=== PATIENT | female | born 1970 | race Caucasian/White ===

== ENCOUNTER 2017-05-01 15:39 | Emergency (ER) | payer BC, SELFPAY ==
[2017-05-01 16:23] LABS: #Basophils 0.1 thou/uL (0.0-0.2); #Eosinphils 0.2 thou/uL (0.0-0.7); #Lymphocytes 3.7 thou/uL (1.20-3.40); #Monocytes 0.7 thou/uL (0.11-0.59); #Neutrophils 5.3 thou/uL (1.40-6.50); %Basophils 0.8 % (0.0-1.0); %Lymphocytes 36.8 % (21.0-51.0); %Monocytes 6.9 % (0.0-10.0); %Neutrophils 53.5 % (42.0-75.0); Hemoglobin 16.9 g/dL (12.0-16.0); Mean Corpuscular HGB CONC 34.4 g/dL (32.0-36.0); Mean Corpuscular Hemoglobin 34.3 pg (27.0-31.0); Mean Corpuscular Volume 99.6 fl (81.0-99.0); Mean Platelet Volume 7.5 fL (7.4-10.4); Platelet Count 280 thou/uL (130-400); RBC Distribution Width 11.8 % (11.5-14.5); Red Blood Cell (RBC) Count 4.94 mill/uL (4.20-5.40)
[2017-05-01 16:45] LABS: ALT (SGPT) 14 U/L (8-55); AST (SGOT) 16 U/L (5-34); Albumin 4.3 g/dL (3.5-5.0); Alkaline Phosphatase 121 U/L (40-150); Anion Gap 10 mmol/L (10-20); BUN (Urea Nitrogen) 15 mg/dL (7.0-18.7); Bilirubin, Total 0.3 mg/dL (0.2-1.2); CK (CPK) 98 U/L (29-168); Calc. Creatinine Clearance 0 mL/min (70-130); Calcium 9.8 mg/dL (7.8-10.44); Carbon Dioxide 25 mmol/L (22-29); Chloride 107 mmol/L (98-107); Estimated GFR-MDRD 83; Globulin 3.2 g/dL (2.4-3.5); Glucose 90 mg/dL (70-105); Potassium 4.1 mmol/L (3.5-5.1); Protein, Total 7.5 g/dL (6.0-8.3); Sodium 138 mmol/L (136-145)
[2017-05-01 16:48] LABS: Troponin I Less than 0.010 ng/mL (< 0.028)
--- NOTE | 2017-05-01 17:25 | RAD ---
PORTABLE CHEST: 05/01/17 COMPARISON: 10/19/14 study. HISTORY: Chest pain. The heart size is within normal limits. There is some atherosclerotic changes of the aorta. The lungs are clear of infiltrative process. IMPRESSION: No active intrathoracic disease. POS: [facility]
[2017-05-01] MEDS ORDERED: Fentanyl 100 MCG/2 ML VIAL ONE (18:33)
--- NOTE | 2017-05-01 18:36 | ULT ---
GALLBLADDER ULTRASOUND: 05/01/17 HISTORY: Right upper quadrant pain. Real time imaging of the right upper quadrant shows suggestion of some minimal sludge within the gall bladder. No gallstones are identified. The common duct is normal in caliber. Technologist reports a n egative ultrasound House's sign. Common duct measures 5 to 6 mm. Visualized liver parenchyma is unre markable. Right kidney is normal in size and not obstructed. The pancreas is partially obscured. IMPRESSION: Suggestive of some minimal sludge within the gallbladder. No gallstones. POS: [facility]
[2017-05-01] MEDS ORDERED: Mag-Al 1200 mg/1200 mg/30 ML UDCUP ONE (18:39)
[2017-05-01] MEDS ORDERED: Lidocaine Viscous Sol 2% 15 ml UD Cup ONE (18:39)
[2017-05-01 18:46] LABS: Bilirubin Negative (Negative); Blood, Urine Negative (Negative); Clarity CLOUDY (Clear); Glucose, Urine (Dipstick) Negative (Negative); Leukocyte Negative (Negative); Nitrite Negative (Negative); Protein, Urine (Dipstick) Negative (Neg-Trace); Specific Gravity, Urine 1.008 (1.002-1.036); Urobilinogen 0.2 mg/dL (0.2-1.0); pH, Urine 5.5 (5.0-9.0)
--- NOTE | 2017-06-05 19:50 | EKG ---
Test Reason : CHEST PAIN Blood Pressure : / mmHG Vent. Rate : 088 BPM Atrial Rate : 088 BPM P-R Int : 142 ms QRS Dur : 068 ms QT Int : 372 ms P-R-T Axes : 039 011 -11 degrees QTc Int : 450 ms Normal sinus rhythm Normal ECG Confirmed by MIGDALIA NIX, JOSE ([id number]), assistant editor DANIEL HUMPHRIES ([id number]) on 06/05/2017 7:50:07 PM Referred By: Confirmed By:JOSE NEGRON MD
== END 2017-05-01 20:57 | disposition home or self-care (01) ==
LOC: ERS 15:39
DX: K82.8 Other specified diseases of gallbladder (principal); R07.89 Other chest pain; I10 Essential (primary) hypertension; G62.9 Polyneuropathy, unspecified; F41.9 Anxiety disorder, unspecified; F17.210 Nicotine dependence, cigarettes, uncomplicated; Z79.899 Other long term (current) drug therapy; Z71.6 Tobacco abuse counseling; Z79.02 Long term (current) use of antithrombotics/antiplatelets
CPT/HCPCS: 36415; 71045; 76705; 80053; 81003; 82553; 83690; 84484; 85025; 93005; 96361; 96374; 96375; 99406; J2270; J3010

== ENCOUNTER 2017-06-12 16:33 | Emergency (ER) | payer BC ==
[~2017-06-12 16:33] MED LIST: ISOVUE-370 76%-LOCM 1 ML ONE
[2017-06-12] MEDS ORDERED: HYDROcodone/Acetaminophen 5/325 mg Tablet ONE (17:58)
[2017-06-12 18:25] LABS: #Basophils 0.1 thou/uL (0.0-0.2); #Eosinphils 0.1 thou/uL (0.0-0.7); #Lymphocytes 3.4 thou/uL (1.20-3.40); #Monocytes 0.8 thou/uL (0.11-0.59); #Neutrophils 8.7 thou/uL (1.40-6.50); %Basophils 0.7 % (0.0-1.0); %Lymphocytes 25.8 % (21.0-51.0); %Monocytes 6.1 % (0.0-10.0); %Neutrophils 66.3 % (42.0-75.0); Hemoglobin 15.2 g/dL (12.0-16.0); Mean Corpuscular HGB CONC 34.8 g/dL (32.0-36.0); Mean Corpuscular Hemoglobin 33.3 pg (27.0-31.0); Mean Corpuscular Volume 95.9 fl (81.0-99.0); Mean Platelet Volume 6.9 fL (7.4-10.4); Platelet Count 316 thou/uL (130-400); RBC Distribution Width 11.6 % (11.5-14.5); Red Blood Cell (RBC) Count 4.56 mill/uL (4.20-5.40); White Blood Cell (WBC) Count 13.1 thou/uL (4.8-10.8)
[2017-06-12 18:41] LABS: BHCG - Serum Negative (NEGATIVE); Pregs Control Background? CLEAR/WHITE (CLR/WHITE); Pregs Control Bar Appear? YES (CONTROL BAR)
[2017-06-12 18:47] LABS: ALT (SGPT) 12 U/L (8-55); AST (SGOT) 17 U/L (5-34); Albumin 4.6 g/dL (3.5-5.0); Alkaline Phosphatase 119 U/L (40-150); Anion Gap 12 mmol/L (10-20); BUN (Urea Nitrogen) 10 mg/dL (7.0-18.7); Bilirubin, Total 0.4 mg/dL (0.2-1.2); CK (CPK) 183 U/L (29-168); Calc. Creatinine Clearance 0 mL/min (70-130); Calcium 9.7 mg/dL (7.8-10.44); Carbon Dioxide 26 mmol/L (22-29); Chloride 97 mmol/L (98-107); Estimated GFR-MDRD 88; Glucose 75 mg/dL (70-105); Potassium 3.5 mmol/L (3.5-5.1); Protein, Total 7.6 g/dL (6.0-8.3); Sodium 131 mmol/L (136-145)
[2017-06-12] MEDS ORDERED: Ondansetron HCl/PF 4 MG/2 ML Vial ONE (19:43)
[2017-06-12] MEDS ORDERED: Morphine 4 MG/ML VIAL ONE (19:43)
--- NOTE | 2017-06-12 20:30 | CT ---
CT ANGIOGRAM ABDOMEN AND PELVIS WITH IV CONTRAST AND 3D RECONSTRUCTIONS CT ANGIOGRAM BILATERAL LOWER EXTREMITIES WITH IV CONTRAST AND 3D RECONSTRUCTIONS 06/12/17 HISTORY: Right lower extremity pain. History of arterial stents. Patient reports burning and numbness as well. COMPARISON: 07/24/16. CT ANGIOGRAM ABDOMEN AND PELVIS: There is bibasilar atelectasis. The liver, spleen, pancreas, bilateral adrenal glands, kidneys, and u rinary bladder demonstrate a normal CT appearance for arterial phase of imaging. There is evidence of hysterectomy. Atherosclerotic vascular calcifications are again seen in the abdominal aorta. The abdominal aorta is normal in caliber without evidence of an aortic dissection. Celiac and superior mesenteric arteries are patent. The ELIA also appears patent. Single patent bilateral renal arteries. Right common iliac artery stent is again noted in place, but there is no enhancement within the stent suggesting occlusion of the stent at the origin. There is reconstitution with patent right internal and external iliac arteries as well as right common femoral artery. The left common iliac as well as internal and external iliac arteries are patent. The left common femoral artery is patent. No other i nterval change. BILATERAL LOWER EXTREMITY RUNOFF TO THE FEET: The bilateral common femoral, superficial femoral, profunda femoral and popliteal arteries are patent . There is three vessel runoff to the right lower extremity. There is two vessel runoff to the left l ower extremity with occlusion of the left posterior tibial artery. There is reconstitution of the pos terior tibial artery at the foot. IMPRESSION: 1. Occlusion of the right common iliac artery stent. There is reconstitution on the right, and t he right external iliac and right common femoral artery are patent. There is three vessel runoff to t he right lower extremity. 2. Two vessel runoff to the left lower extremity. The left posterior tibial artery is occluded. 3. Atherosclerotic calcifications and plaque in the abdominal aorta, but the abdominal aorta is normal in caliber without evidence of an aortic dissection. POS: [facility]
== END 2017-06-12 21:32 | disposition home or self-care (01) ==
LOC: ERS 16:33
DX: I74.5 Embolism and thrombosis of iliac artery (principal); I10 Essential (primary) hypertension; F41.9 Anxiety disorder, unspecified; F32.9 Major depressive disorder, single episode, unspecified; F17.210 Nicotine dependence, cigarettes, uncomplicated; Z79.899 Other long term (current) drug therapy
CPT/HCPCS: 36415; 75635; 80053; 82550; 83605; 84703; 85025; 96374; 96375; 99406; J2270; J2405

== ENCOUNTER 2017-06-15 22:29 | Observation (INO) | payer BC ==
[2017-06-16] MEDS ORDERED: diphenhydrAMINE 50 MG/ML VIAL ONE (00:38)
[2017-06-16] MEDS ORDERED: Metoclopramide HCl 10 MG/2 ML VIAL ONE (00:38)
[2017-06-16 01:09] LABS: #Basophils 0.1 thou/uL (0.0-0.2); #Eosinphils 0.1 thou/uL (0.0-0.7); #Lymphocytes 3.3 thou/uL (1.20-3.40); #Monocytes 0.7 thou/uL (0.11-0.59); #Neutrophils 7.6 thou/uL (1.40-6.50); %Basophils 0.7 % (0.0-1.0); %Eosinophils 0.9 % (0.0-10.0); %Lymphocytes 27.9 % (21.0-51.0); %Monocytes 5.8 % (0.0-10.0); %Neutrophils 64.7 % (42.0-75.0); Hemoglobin 14.9 g/dL (12.0-16.0); Mean Corpuscular HGB CONC 34.8 g/dL (32.0-36.0); Mean Corpuscular Hemoglobin 33.1 pg (27.0-31.0); Mean Corpuscular Volume 95.3 fl (81.0-99.0); Mean Platelet Volume 7.2 fL (7.4-10.4); Platelet Count 301 thou/uL (130-400); RBC Distribution Width 11.4 % (11.5-14.5); White Blood Cell (WBC) Count 11.7 thou/uL (4.8-10.8)
[2017-06-16 01:14] LABS: INR-International Normal Ratio 0.9; Prothrombin Time 12.3 SEC (12.0-14.7)
[2017-06-16 01:30] LABS: ALT (SGPT) 9 U/L (8-55); AST (SGOT) 14 U/L (5-34); Albumin 4.2 g/dL (3.5-5.0); Alkaline Phosphatase 111 U/L (40-150); Anion Gap 12 mmol/L (10-20); BUN (Urea Nitrogen) 10 mg/dL (7.0-18.7); Bilirubin, Total 0.2 mg/dL (0.2-1.2); Calc. Creatinine Clearance 0 mL/min (70-130); Calcium 9.3 mg/dL (7.8-10.44); Carbon Dioxide 25 mmol/L (22-29); Chloride 98 mmol/L (98-107); Estimated GFR-MDRD 89; Globulin 2.9 g/dL (2.4-3.5); Glucose 115 mg/dL (70-105); Lipase 31 U/L (8-78); Potassium 3.7 mmol/L (3.5-5.1); Protein, Total 7.1 g/dL (6.0-8.3); Sodium 131 mmol/L (136-145)
[2017-06-16] MEDS ORDERED: Morphine 4 MG/ML VIAL ONE ×2 (01:59→03:44)
[2017-06-16] MEDS ORDERED: Clopidogrel Bisulfate 75 MG TAB ONE (02:53)
[2017-06-16 03:11] LABS: CKMB 1.1 ng/mL (0-6.6); Troponin I Less than 0.010 ng/mL (< 0.028)
[2017-06-16] MEDS ORDERED: Acetaminophen 325 MG TAB PO PRN (07:38)
[2017-06-16] MEDS ORDERED: Ondansetron HCl/PF 4 MG/2 ML Vial IVP PRN (07:38)
--- NOTE | 2017-06-16 08:39 | CT ---
PRELIMINARY REPORT/[facility]/EMERGENCY AFTER HOURS PROCEDURE: EXAM: CT Head Without Intravenous Contrast CLINICAL HISTORY: 47 years old, female; Pain; Headache; Patient HX: 47 yo f. Pt presents with CRUZ onset this evening at 1800, no intervention after taking tylenol. States that had a small CRUZ yesterday that resolved with t ylenol but was gradual onset again tonight and not relief, described as throbbing, and into neck. Pt with HX of cruz's but hasn't had one in a while, but is similar to ones in the past. Reports nausea and photophobia associated. HX of arterial occlusions TECHNIQUE: Axial computed tomography images of the head/brain without intravenous contrast. COMPARISON: No relevant prior studies available. FINDINGS: Brain: Age-indeterminate right basal ganglia/box radiata infarction image 16 No hemorrhage. Minimal white matter disease. No edema. Ventricles: Unremarkable. No ventriculomegaly. Bones/joints: Unremarkable. No acute fracture. Soft tissues: Unremarkable. Sinuses: Unremarkable as visualized. No acute sinusitis. Mastoid air cells: Unremarkable as visualized. No mastoid effusion. IMPRESSION: Age-indeterminate right basal ganglia/box radiata infarction. Comparison with prior images would b e helpful paralyzed clinical correlation recommended. Further evaluation as indicated No intracranial hemorrhage.Please see discussion above. Thank you for allowing us to participate in the care of your patient. Dictated and Authenticated by: Gui Multani MD 06/16/2017 2:19 AM Central Time ([place] & [place]) FINAL REPORT: HEAD CT WITHOUT CONTRAST: Date: 06-16-17 Comparison: 10-19-14 History: Headache. FINDINGS: I agree with the preliminary [facility] report dictated by Dr. Dunn. The visualized paranasal sinuses an d mastoid air cells are well aerated. There is no displaced calvarial fracture. There is no intracran ial hemorrhage, midline shift or mass effect seen. A subtle hypodensity is seen in the periventricula r white matter near the frontal horn of the right lateral ventricle, stable. IMPRESSION: No acute findings. Code QA POS: [facility]
--- NOTE | 2017-06-16 09:10 | CT ---
PRELIMINARY REPORT/[facility]/EMERGENCY AFTER HOURS PROCEDURE: Addendum created by Gui Multani MD on 06/16/2017 2:47 AM Central Time ([place] & [place]) EXAM: CT Angiography Head With Intravenous Contrast CLINICAL HISTORY: 47 years old, female; Pain; Headache; Patient HX: 47 yo f. Pt presents with CRUZ onset this evening at 1800, no intervention after taking tylenol. States that had a small CRUZ yesterday that resolved with tylenol but was gradual onset again tonight and not relief, described as throbbing, and into neck. Pt with HX of cruz's but hasn't had one in a while, but is similar to ones in the past. Reports nausea an d photophobia associated. HX of arterial occlusions TECHNIQUE: Axial computed tomographic angiography images of the head with intravenous contrast using CT angiogra phy protocol. Coronal and sagittal reformatted images were created and reviewed. COMPARISON: No relevant prior studies available. FINDINGS: Right internal carotid artery: No acute findings. Intracranial segment is patent with no significant stenosis. No aneurysm. Right anterior cerebral artery: No occlusion or significant stenosis. No aneurysm. Right middle cerebral artery: Partially occluded right M1 segments with normal opacification of the a nterior and posterior divisions of the right MCA. Diminutive appearance to the distal right sylvian b [place] however grossly patent. No aneurysm. Right posterior cerebral artery: origin with hypoplasia of the P1 segment, a normal variation N o occlusion or significant stenosis. No aneurysm. Right vertebral artery: Hypoplastic however grossly patent Left internal carotid artery: No acute findings. Intracranial segment is patent with no significant s tenosis. No aneurysm. Left anterior cerebral artery: No occlusion or significant stenosis. No aneurysm. Left middle cerebral artery: No occlusion or significant stenosis. No aneurysm. Left posterior cerebral artery: origin with hypoplasia of the P1 segment, a normal variation No occlusion or significant stenosis. No aneurysm. Left vertebral artery: Hypoplastic however grossly patent Basilar artery: Hypoplastic. Questionable fenestration in the proximal portion coronal image 49 No oc clusion or significant stenosis. No aneurysm. IMPRESSION: Partial occlusion of the right M1 segment with reconstitution as described. Findings are of indetermi lisa age Hypoplasia of the posterior circulation with normal variations as described. Question fenestration the proximal basilar artery EXAM: CT Angiography Neck With Intravenous Contrast CLINICAL HISTORY: 47 years old, female; Pain; Headache; Patient HX: 47 yo f. Pt presents with CRUZ onset this evening at 1800, no intervention after taking tylenol. States that had a small CRUZ yesterday that resolved with t ylenol but was gradual onset again tonight and not relief, described as throbbing, and into neck. Pt with HX of cruz's but hasn't had one in a while, but is similar to ones in the past. Reports nausea and photophobia associated. HX of arterial occlusions TECHNIQUE: Axial computed tomographic angiography images of the neck with intravenous contrast using CT angiogra phy protocol. Coronal and sagittal reformatted images were created and reviewed. COMPARISON: No relevant prior studies available. FINDINGS: VASCULATURE: Right common carotid artery: No significant stenosis. No dissection or occlusion. Right internal carotid artery: Calcified plaque at the bulb with mild stenosis. No dissection or occl usion. Right external carotid artery: Unremarkable. No occlusion. Right vertebral artery: No significant stenosis. No dissection or occlusion. Left common carotid artery: No significant stenosis. No dissection or occlusion. Left internal carotid artery: Calcified plaque with mild stenosis at the bulb. No dissection or occlu gunnar. Left external carotid artery: 6mm occlusion at the origin with reconstitution best appreciated on cor onal image 57 and axial images 109-114 Left vertebral artery: No significant stenosis. No dissection or occlusion. NECK: Bones/joints: No acute fracture. No dislocation. Soft tissues: 9 mm hypodense nodule in the right lobe of the thyroid image 52 Minimal emphysema CAROTID STENOSIS REFERENCE USING NASCET CRITERIA: % ICA stenosis = (1 - narrowest ICA diameter/diameter of distal cervical ICA) x 100. Mild - <50% stenosis. Moderate - 50-69% stenosis. Severe - 70-94% stenosis. Near occlusion - 95-99% stenosis. Occluded - 100% stenosis. IMPRESSION: Mild internal carotid artery stenoses 6mm segment occlusion of the left external carotid artery at its origin with reconstitution as noted Patent vertebral arteries Incidental 9 mm right-sided thyroid nodule THIS REPORT CONTAINS FINDINGS THAT MAY BE CRITICAL TO PATIENT CARE. The findings were verbally commun icated via telephone conferen
ce with Jordin NIX at 2:20 AM CDT on 06/16/2017. The findings were a cknowledged and understood. Initial Report created on 06/16/2017 2:28 AM Central Time ([place] & [place]) EXAM: CT Angiography Head With Intravenous Contrast CLINICAL HISTORY: 47 years old, female; Pain; Headache; Patient HX: 47 yo f. Pt presents with CRUZ onset this evening at 1800, no intervention after taking tylenol. States that had a small CRUZ yesterday that resolved with t ylenol but was gradual onset again tonight and not relief, described as throbbing, and into neck. Pt with HX of cruz's but hasn't had one in a while, but is similar to ones in the past. Reports nausea and photophobia associated. HX of arterial occlusions TECHNIQUE: Axial computed tomographic angiography images of the head with intravenous contrast using CT angiogra phy protocol. Coronal and sagittal reformatted images were created and reviewed. COMPARISON: No relevant prior studies available. FINDINGS: Right internal carotid artery: No acute findings. Intracranial segment is patent with no significant stenosis. No aneurysm. Right anterior cerebral artery: No occlusion or significant stenosis. No aneurysm. Right middle cerebral artery: Partially occluded right M1 segments with normal opacification of the a nterior and posterior divisions of the right MCA. Diminutive appearance to the distal right sylvian branch however grossly patent. No aneurysm. Right posterior cerebral artery: origin with hypoplasia of the P1 segment, a normal variation N o occlusion or significant stenosis. No aneurysm. Right vertebral artery: Hypoplastic however grossly patent Left internal carotid artery: No acute findings. Intracranial segment is patent with no significant s tenosis. No aneurysm. Left anterior cerebral artery: No occlusion or significant stenosis. No aneurysm. Left middle cerebral artery: No occlusion or significant stenosis. No aneurysm. Left posterior cerebral artery: origin with hypoplasia of the P1 segment, a normal variation No occlusion or significant stenosis. No aneurysm. Left vertebral artery: Hypoplastic however grossly patent Basilar artery: Hypoplastic. Questionable fenestration in the proximal portion coronal image 49 No oc clusion or significant stenosis. No aneurysm. IMPRESSION: Partial occlusion of the right M1 segments with reconstitution as described. Findings are of indeterm inate age Hypoplasia of the posterior circulation with normal variations as described. Question fenestration the proximal basilar artery EXAM: CT Angiography Neck With Intravenous Contrast CLINICAL HISTORY: 47 years old, female; Pain; Headache; Patient HX: 47 yo f. Pt presents with CRUZ onset this evening at 1800, no intervention after taking tylenol. States that had a small CRUZ yesterday that resolved with t ylenol but was gradual onset again tonight and not relief, described as throbbing, and into neck. Pt with HX of cruz's but hasn't had one in a while, but is similar to ones in the past. Reports nausea and photophobia associated. HX of arterial occlusions TECHNIQUE: Axial computed tomographic angiography images of the neck with intravenous contrast using CT angiogra phy protocol. Coronal and sagittal reformatted images were created and reviewed. COMPARISON: No relevant prior studies available. FINDINGS: VASCULATURE: Right common carotid artery: No significant stenosis. No dissection or occlusion. Right internal carotid artery: Calcified plaque at the bulb with mild stenosis. No dissection or occl usion. Right external carotid artery: Unremarkable. No occlusion. Right vertebral artery: No significant stenosis. No dissection or occlusion. Left common carotid artery: No significant stenosis. No dissection or occlusion. Left internal carotid artery: Calcified plaque with mild stenosis at the bulb. No dissection or occl usion. Left external carotid artery: 6mm occlusion at the origin with reconstitution best appreciated on cor onal image 57 and axial images [id number] Left vertebral artery: No significant stenosis. No dissection or occlusion. NECK: Bones/joints: No acute fracture. No dislocation. Soft tissues: 9 mm hypodense nodule in the right lobe of the thyroid image 52 Minimal emphysema CAROTID STENOSIS REFERENCE USING NASCET CRITERIA: % ICA stenosis = (1 - narrowest ICA diameter/diameter of distal cervical ICA) x 100. Mild - <50% stenosis. Moderate - 50-69% stenosis. Severe - 70-94% stenosis. Near occlusion - 95-99% stenosis. Occluded - 100% stenosis. IMPRESSION: Mild carotid stenoses Short segment occlusion of the left external carotid artery with reconstitution as noted Patent vertebral arteries Incidental 9 mm right-sided thyroid nodule THIS REPORT CONTAINS FINDINGS THAT MAY BE CRITICAL TO PATIENT CARE. The findings were verbally commun icated via telephone conference with Jordin NIX at 2:20 AM CDT on 06/16/2017. The findings were acknow ledged and understood. Thank you for allowing us to participate in the care of your patient. Dictated and Authenticated by: Gui Multani MD 06/16/2017 2:28 AM Central Time ([place] & [place]) FINAL REPORT CT ANGIOGRAM OF THE HEAD CT ANGIOGRAM OF THE NECK: Date: 06-16-17 Comparison: None. History: Headache. FINDINGS: I agree with the preliminary [facility] report dictated by Dr. Gui Multani. The imaged lung apices are unremarkable. The retro antral and peripharyngeal fat is clear bilaterally. The submandibular glands and right paro tid gland are unremarkable. There is an oval soft tissue density along the posterior margin of the pa rotid gland on the left measuring 7-8 mm short axis dimension. This likely represents a lymph node ad jacent to the parotid gland. A small parotid solid nodule cannot be excluded. Further assessment via focused ultrasound is advised. Lymphadenopathy evident within the neck. The origin of the innominate artery and left common carotid artery is limited on the basis of streak artifact from venous contrast media. Origin of the left subclavian artery appears unremarkable. There is a moderate degree of stenosis at the origin of the left vertebral artery. Left vertebral artery i s otherwise unremarkable. Right vertebral artery is unremarkable. Origin of the right subclavian and right common carotid artery within normal limits. There is a short segment focal area of occlusion involving the external carotid artery on the left wi th distal reconstitution. There is mild atherosclerotic calcification of the distal left common carot id artery. There is mild noncalcified plaque within the proximal left internal carotid artery. There is no hemodynamically significant stenosis involving the common carotid artery or internal carotid ar juan on either side. The basilar artery is relatively hypoplastic but patent. There are prominent patent bilateral posteri or communicating arteries with probable hypoplastic bilateral P1 segments. Region of the anterior communicating artery, bilateral A1 segments and distal ABELARDO branches appear wit hin normal limits. M1 segment appears unremarkable on the left with patent distal left MCA branches. There is occlusion at the origin of the M1 segment on the right with distal reconstitution and diminu tive but patent M2 branches on the right. There is hazy blush of contrast media adjacent to the occlu ded M1 segment on the right which may signify small collateral branches. Occlusion of the M1 segment on the right is age indeterminate. Clinical correlation is warranted. No sacular aneurysm. Incidental note is made of a hypodense nodule within the right lobe of the thyroid gland measuring up to 9 mm. Recommend follow up focused ultrasound of the left parotid region. Code T POS: [facility]
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
[2017-06-16] MEDS ORDERED: ISOVUE-370 76%-LOCM 1 ML ONE (12:23)
[2017-06-16] MEDS ORDERED: Ketorolac Tromethamine 30 MG/ML VIAL ONE (12:38)
[2017-06-16] MEDS ORDERED: Acetaminophen 325 MG TAB ONE (12:38)
[2017-06-16] MEDS ORDERED: Nicotine 21 MG PATCH TOP SCH (17:30)
[2017-06-16] MEDS: Clopidogrel Bisulfate 75 MG TAB PO SCH (18:22)
[2017-06-16 19:58] VITALS: BMI 35.2
[2017-06-16] MEDS: Ketorolac Tromethamine 30 MG/ML VIAL IVP PRN (22:58)
[2017-06-17 06:10] LABS: #Eosinphils 0.1 thou/uL (0.0-0.7); #Monocytes 0.6 thou/uL (0.11-0.59); %Basophils 0.4 % (0.0-1.0); %Eosinophils 1.8 % (0.0-10.0); %Lymphocytes 38.4 % (21.0-51.0); %Monocytes 7.8 % (0.0-10.0); %Neutrophils 51.6 % (42.0-75.0); Hemoglobin 14.5 g/dL (12.0-16.0); Mean Corpuscular HGB CONC 34.7 g/dL (32.0-36.0); Mean Corpuscular Hemoglobin 33.4 pg (27.0-31.0); Mean Corpuscular Volume 96.3 fl (81.0-99.0); Mean Platelet Volume 7.2 fL (7.4-10.4); Platelet Count 272 thou/uL (130-400); RBC Distribution Width 11.6 % (11.5-14.5); Red Blood Cell (RBC) Count 4.34 mill/uL (4.20-5.40); White Blood Cell (WBC) Count 7.7 thou/uL (4.8-10.8)
[2017-06-17 06:28] LABS: Anion Gap 11 mmol/L (10-20); BUN (Urea Nitrogen) 18 mg/dL (7.0-18.7); Calc. Creatinine Clearance 137 mL/min (70-130); Carbon Dioxide 24 mmol/L (22-29); Cardiac Risk 4.7 (Less than 4.5); Chloride 105 mmol/L (98-107); Cholesterol 178 mg/dl (< 200 Desired); Estimated GFR-MDRD 85; Glucose 107 mg/dL (70-105); HDL Cholesterol 38 mg/dL (>60 Neg Risk); LDL Cholesterol, Calculated 118 mg/dL; Sodium 136 mmol/L (136-145); Triglycerides 109 mg/dL (Less than 150)
[2017-06-17] MEDS: Lisinopril 5 MG TAB PO SCH ×2 (08:50→20:11)
[2017-06-17] MEDS: Clopidogrel Bisulfate 75 MG TAB PO SCH (08:50)
[2017-06-17] MEDS: Metoprolol Tartrate 25 MG TAB PO SCH ×2 (08:50→20:12)
[2017-06-17] MEDS: Ketorolac Tromethamine 30 MG/ML VIAL IVP PRN ×2 (08:50→16:12)
--- NOTE | 2017-06-17 08:52 | PDOC.PN ---
- Subjective Encounter Start Date: 06/17/17 Encounter Start Time: 08:50 Ms. Pang was seen in follow-up. She says she is having an excruciating headache. She describes it as an 8/10. She also feels weak. She says she was intolerant to a certain cholesterol medication, she is not sure what the name was, but will call and find out. - Objective Resuscitation Status: Resuscitation Status FULL:Full Resuscitation MAR Reviewed: Yes Vital Signs & Weight: Vital Signs (12 hours) Temp Pulse Resp BP Pulse Ox 06/17/17 07:45 97.9 F 62 16 150/72 H 97 06/17/17 03:31 97.7 F 69 16 149/88 H 95 06/16/17 23:31 97.7 F 66 16 157/100 H 99 Weight Weight 202 lb 11.2 oz I&O: 06/16/17 06/17/17 06/18/17 06:59 06:59 06:59 Intake Total 300 Balance 300 Result Diagrams: 06/17/17 05:53 06/17/17 05:53 Phys Exam - Physical Examination HEENT: PERRLA Respiratory: no wheezing, no rales, no rhonchi, clear to auscultation bilateral Cardiovascular: RRR, no significant murmur, no rub Gastrointestinal: soft, non-tender, no distention, positive bowel sounds Musculoskeletal: no edema Neurological: moves all 4 limbs Dx/Plan (1) Severe headache Code(s): R51 - HEADACHE Status: Acute (2) Hypertension Code(s): I10 - ESSENTIAL (PRIMARY) HYPERTENSION Status: Acute (3) Cerebral vascular disease Code(s): I67.9 - CEREBROVASCULAR DISEASE, UNSPECIFIED Status: Acute (4) Dyslipidemia Code(s): E78.5 - HYPERLIPIDEMIA, UNSPECIFIED Status: Acute - Plan * Headache- ? etiology- await Neurology input * HTN- blood pressure is a bit elevated- will re-start her home medications * Dyslipidemia- would like to start a statin- will find out which medication she was taking and decide from there
[2017-06-17] MEDS ORDERED: Valproate Sodium 1,000 MG in Sodium Chloride 0.9% 100 ML IVPB SCH (17:30)
[2017-06-17] MEDS ORDERED: Metoclopramide HCl 10 MG/2 ML VIAL IVP SCH (17:30)
[2017-06-17] MEDS ORDERED: Dexamethasone 4 mg/ml Vial SLOW IVP SCH (17:30)
[2017-06-17] MEDS: Dihydroergotamine Mesylate 1 MG/ML AMP SLOW IVP SCH ×2 (17:59→23:07)
[2017-06-17] MEDS ORDERED: hydrALAZINE 20 MG/ML VIAL SLOW IVP PRN (22:28)
[2017-06-17] MEDS ORDERED: hydrALAZINE 20 MG/ML VIAL SLOW IVP SCH (22:30)
--- NOTE | 2017-06-17 22:40 | CON ---
DATE OF CONSULTATION: 06/17/2017 CONSULTING PHYSICIAN: Hospitalist service. IMPRESSION: 1. Severe headache suggestive of a migraine. 2. Vascular disease resulting in some right M1 segment narrowing and prior right basal ganglia strok e. 3. Peripheral vascular disease. 4. Hypertension. PLAN: 1. Newtno protocol. 2. Continue antiplatelet therapy. 3. Continue a statin. This is a 47-year-old white female with a past history of peripheral vascular disease in the legs whi ch has been treated by Dr. Corbett. She has a history of hypertension and she has had stents placed in the past. She apparently has some recurrent stenosis and require bypass, 3 days ago she developed a n acute onset of severe headache on the right side. It was associated with some nausea as well as li ght and sound sensitivity. She has had some persistent pain despite receiving Toradol. She had a CT of the brain done, which did not show any evidence of a hemorrhage. CTA of the carotids were unrema rkable. A CTA of the [place] showed some right M1 segment narrowing. She has not had a his tory of bad headaches in the past. PAST MEDICAL HISTORY: As listed above. ALLERGIES: ASPIRIN. MEDICATIONS: List was reviewed. SOCIAL HISTORY: Unremarkable. FAMILY HISTORY: Noncontributory. REVIEW OF SYSTEMS: No complaints of any focal neurologic symptoms, blurred vision, slurred speech, d ifficulty swallowing, or alteration of consciousness. PHYSICAL EXAMINATION: GENERAL: She is an obese middle-aged woman sitting in bed in no apparent distress. VITAL SIGNS: Have been stable. She is afebrile. HEENT: Pupils are equal and reactive. Conjunctivae clear. Oropharynx clear. Cranium normocephalic and atraumatic. NECK: Supple. EXTREMITIES: No cyanosis or edema. NEUROLOGIC: She is alert and appropriate. Her speech is fluent and clear. Cranial nerves II-XII ar e intact. Motor exam showed symmetric strength. There was no fix or drift. Sensation was intact to light touch. Cerebellar testing showed normal finger to nose and rapid alternating movements. Gait was not tested. IMAGING: Reviewed. SUMMARY: The findings on CT scan are chronic. She does not appear to have any evidence of a new str alyssia that would account for an acute headache. She has no focal symptoms to suggest an acute stroke. I suspect this is likely migraine in origin, given her vascular disease. She will need to continue antiplatelet therapy and a statin.
[2017-06-18] MEDS: Lisinopril 5 MG TAB PO SCH (08:43)
[2017-06-18] MEDS: Clopidogrel Bisulfate 75 MG TAB PO SCH (08:43)
[2017-06-18] MEDS: Metoprolol Tartrate 25 MG TAB PO SCH (08:44)
[2017-06-18 11:52] VITALS: BP 147/88; TEMP 98.1
[2017-06-18] MEDS ORDERED: SUMAtriptan Succinate 50 MG TAB PO PRN (14:54)
--- NOTE | 2017-06-18 15:03 | PDOC.PN ---
- Subjective Encounter Start Date: 06/18/17 Encounter Start Time: 14:59 Ms. Pang was seen today in follow-up. She is feeling a bit better. - Objective Resuscitation Status: Resuscitation Status FULL:Full Resuscitation MAR Reviewed: Yes Vital Signs & Weight: Vital Signs (12 hours) Temp Pulse Resp BP Pulse Ox 06/18/17 11:51 98.1 F 58 L 20 147/88 H 95 06/18/17 08:43 72 06/18/17 08:10 98.2 F 72 16 155/91 H 96 06/18/17 08:02 98.2 F 72 16 06/18/17 03:52 98.1 F 69 16 149/108 H 95 Weight Weight 204 lb 1.6 oz I&O: 06/17/17 06/18/17 06/19/17 06:59 06:59 06:59 Intake Total 300 530 600 Balance 300 530 600 Result Diagrams: 06/17/17 05:53 06/17/17 05:53 Phys Exam - Physical Examination HEENT: PERRLA Respiratory: no wheezing, no rales, no rhonchi, clear to auscultation bilateral Cardiovascular: RRR, no significant murmur ( ) Musculoskeletal: no edema Dx/Plan (1) Severe headache Code(s): R51 - HEADACHE Status: Acute (2) Hypertension Code(s): I10 - ESSENTIAL (PRIMARY) HYPERTENSION Status: Acute (3) Cerebral vascular disease Code(s): I67.9 - CEREBROVASCULAR DISEASE, UNSPECIFIED Status: Acute (4) Dyslipidemia Code(s): E78.5 - HYPERLIPIDEMIA, UNSPECIFIED Status: Acute - Plan * She has been evaluated by Dr. Victor, and it is felt that her headache was likely the result of a migraine- * Changes on CT scan are due to an old CVA * Stable for discharge home.
--- NOTE | 2017-06-18 20:17 | DIS ---
PRIMARY CARE PHYSICIAN: Reji Hanson D.O. DATE OF ADMISSION: 06/16/2017 DATE OF DISCHARGE: 06/18/2017 DISCHARGE DISPOSITION: Home. PRIMARY DISCHARGE DIAGNOSES: 1. Migraine headache. 2. Cerebrovascular disease with a remote stroke. 3. Hypertension. 4. Peripheral artery disease. 5. Anxiety and depression. DISCHARGE MEDICATIONS: She is to continue Plavix 75 mg daily, venlafaxine 75 mg daily, Imitrex 50 mg as needed, pravastatin 20 mg at bedtime, Lopressor 25 mg twice a day, lisinopril 5 mg twice a day, g abapentin 600 mg daily, BuSpar 7.5 mg twice a day and bupropion 150 mg extended release daily. PROCEDURES DONE DURING THE ADMISSION: The patient had a CT scan of the brain, in which there was an age indeterminate right basal ganglia/box radiata infarction. The patient had a CT angiogram show ing a partial occlusion of the right M1 segment with reconstitution and the findings are indeterminat e and there was some hypoplasia of the posterior circulation. CONSULTANTS DURING ADMISSION: The patient was seen by Neurology, Dr. Victor. HOSPITAL COURSE: Ms. Pang is a pleasant a pleasant 47-year-old female that presented to the emergen cy room with complaints of severe headache and she also was having some pains on the left side of her face and had some double vision and she had some generalized weakness in her arms and legs. CT scan in the emergency room showed a possible infarct but the age is undetermined. She also underwent a C T angiogram of the cerebral circulation. There was no aneurysm noted and no significant stenosis. S he was seen by Neurology and it is felt that the stroke was old and that the symptoms of headache wer e likely as a result of a migraine and he is recommending migraine medication for the headache. Her weakness improved during her hospital stay and it was discovered that the patient had not been taking Lipitor as she says it causes severe muscle cramp. For this reason, she was changed to pravastatin in hopes that it will have a better side effect profile for her and Imitrex was added for headache re lief and she is to follow up with her primary care physician in 1-2 weeks.
--- NOTE | 2017-06-28 15:46 | EKG ---
Test Reason : Blood Pressure : / mmHG Vent. Rate : 079 BPM Atrial Rate : 079 BPM P-R Int : 148 ms QRS Dur : 074 ms QT Int : 376 ms P-R-T Axes : 057 017 027 degrees QTc Int : 431 ms Normal sinus rhythm Normal ECG Confirmed by TICO HARRISON M.D. ([id number]), manuscript editor DANIEL HUMPHRIES ([id number]) on 06/28/2017 3:46:16 PM Referred By: Confirmed By:TICO HARRISON M.D.
== END 2017-06-18 15:50 | disposition home or self-care (01) ==
LOC: ERS 22:29 → ERHOLD 06-16 03:35 → 2SE 06-16 18:20
PROVIDERS: ADMIT Internal Medicine; ATTEND Internal Medicine
DX: G43.909 Migraine, unspecified, not intractable, without status migrainosus (principal); I67.9 Cerebrovascular disease, unspecified; E78.5 Hyperlipidemia, unspecified; I10 Essential (primary) hypertension; I73.9 Peripheral vascular disease, unspecified; F41.8 Other specified anxiety disorders; Z88.8 Allergy status to other drugs, medicaments and biological substances; Z79.899 Other long term (current) drug therapy; Z98.890 Other specified postprocedural states
CPT/HCPCS: 36415; 70450; 70496; 70498; 80048; 80053; 80061; 82553; 83690; 83735; 84484; 85025; 85610; 93005; 96365; 96375; 96376; G0378; G8978-GP-CI; G8979-GP-CI; G8980-GP-CI; G8987-GO-CI; G8988-GO-CI; G8989-GO-CI; G9162-GN-CH; G9163-GN-CH; J0360; J1100; J1110; J1200; J1885; J2270; J2765; J7050

== ENCOUNTER 2017-06-28 08:45 | Inpatient (IN) | payer BC ==
[2017-06-29] MEDS ORDERED: CEFAZOLIN/Water 2 GM/20 ML SYRINGE ONE (06:24)
[2017-06-29] MEDS ORDERED: Heparin 5,000 UNITS/ML VIAL ONE (06:35)
[2017-06-29] MEDS ORDERED: Protamine Sulfate 50 MG/5 ML VIAL ONE ×2 (06:35→08:38)
[2017-06-29] MEDS ORDERED: Heparin 10,000 UNITS/1 ML VIAL 30,000 UNITS in Sodium Chloride 0.9% 1,000 ML FS SCH (06:45)
[2017-06-29] MEDS ORDERED: Midazolam HCl 2 mg/2 ml Vial ONE (07:06)
[2017-06-29] MEDS ORDERED: Fentanyl 250 MCG/5 ML VIAL ONE (07:06)
[2017-06-29] MEDS ORDERED: Phenylephrine HCL 10 MG/ML VIAL ONE (07:07)
[2017-06-29] MEDS ORDERED: Ondansetron HCl/PF 4 MG/2 ML Vial ONE ×2 (07:07→13:43)
[2017-06-29] MEDS ORDERED: Norepinephrine 4 MG/4 ML VIAL ONE (07:07)
[2017-06-29] MEDS ORDERED: PHENYLEPHRINE-NS 100 MCG/ML 10 ML SYRINGE ONE ×2 (07:07→13:43)
[2017-06-29] MEDS ORDERED: Albumin 5% 0 ML ONE (07:07)
[2017-06-29] MEDS ORDERED: Promethazine HCl 25 MG/ML VIAL ONE (07:07)
[2017-06-29] MEDS ORDERED: HYDROmorphone 0.5 MG/0.5 ML SYRINGE ONE (07:08)
[2017-06-29] MEDS ORDERED: Morphine Sulfate 2 MG/ML SYRINGE SLOW IVP PRN (10:36)
[2017-06-29] MEDS ORDERED: Ondansetron HCl/PF 4 MG/2 ML Vial IVP PRN ×3 (10:36→17:48)
[2017-06-29] MEDS ORDERED: Promethazine HCl 25 MG/ML VIAL SLOW IVP PRN (10:36)
[2017-06-29] MEDS ORDERED: Fentanyl 100 MCG/2 ML VIAL ONE ×2 (10:45→10:58)
[2017-06-29] MEDS ORDERED: Insulin Regular 300 UNITS/3 ML VIAL SC PRN (11:58)
[2017-06-29] MEDS ORDERED: Fentanyl 100 MCG/2 ML VIAL SLOW IVP PRN (11:58)
[2017-06-29] MEDS ORDERED: Phenylephrine 10 MG/NS 250 ML 250 ML IVPB PRN (11:58)
[2017-06-29] MEDS ORDERED: Promethazine HCl 25 MG/ML VIAL IM PRN ×2 (11:58→17:48)
[2017-06-29] MEDS ORDERED: hydrALAZINE 20 MG/ML VIAL SLOW IVP PRN (11:58)
[2017-06-29] MEDS ORDERED: niCARdipine HCl 25 MG in Sodium Chloride 0.9% 250 ML 240 ML IVPB PRN (11:58)
[2017-06-29] MEDS: Lactated Ringer's 1,000 ML IV SCH ×2 (12:39→21:00)
[2017-06-29] MEDS: Ketorolac Tromethamine 30 MG/ML VIAL IVP SCH ×3 (12:39→22:52)
[2017-06-29] MEDS: Fentanyl 100 MCG/2 ML VIAL SLOW IVP PRN ×3 (13:28→16:35)
[2017-06-29] MEDS: CEFAZOLIN/Water 2 GM/20 ML SYRINGE SLOW IVP SCH ×2 (13:29→22:53)
[2017-06-29] MEDS ORDERED: Lidocaine 1% PF 5 ML VIAL ONE (13:43)
[2017-06-29] MEDS ORDERED: Heparin 10,000 UNITS/ 10 ML VIAL ONE (13:43)
[2017-06-29] MEDS ORDERED: Glycopyrrolate 0.2 MG/ML 5 ML SYRINGE ONE (13:43)
[2017-06-29] MEDS ORDERED: PROPOFOL 200 MG/20 ML VIAL ONE (13:43)
[2017-06-29] MEDS ORDERED: Dexamethasone 20 MG/5 ML VIAL ONE (13:43)
--- NOTE | 2017-06-29 14:06 | OP ---
PREOPERATIVE DIAGNOSIS: Peripheral arterial disease. PROCEDURE: Aorta by external iliac bypass with a 12 x 7 Hemashield bifurcation graft. SURGEON: Dr. Kit Corbett. STEAMBOAT PILOT: Dr. Vera. TRANSFUSION: None. ESTIMATED BLOOD LOSS: 300. PROCEDURE IN DETAIL: After adequate anesthesia had been obtained, the patient was examined. She was rather obese with significant adipose tissue overhanging her groin areas making groin incisions not a first choice. Her CT scan, it showed what appeared to be disease free external iliac arteries and at that point, it was decided to remain in the abdominal cavity rather than to risk a groin infection with a Dacron graft. The patient was then prepped and draped and after antibiotics had been adminis tered, midline abdominal incision was made. Some adhesions were taken down from a previous lower mid line incision with a herniated omentum being present in the abdominal wall. Following this, a Balfou r retractor was placed and then the Bookwalter retractor. Due to her obesity, the retractor blades w ere at their limit as far as exposure. Distal abdominal aorta was exposed, following which external iliac arteries were exposed and tunnels created. After heparinization, the aorta was clamped distall y. The left common iliac was clamped and the aorta was then divided at the bifurcation. The common iliac artery on the left was oversewn with a double layer of 3-0 Prolene suture and ultimately additi onal sutures were required to control bleeding and this calcified vessel. The right common iliac art amy was thrombosed. Following this, end-to-end anastomosis to the aorta was completed with a running 4-0 Prolene suture. Limbs were brought through the tunnel and end-to-side anastomosis performed to the external iliac arteries a couple of centimeters after the takeoff of the hypogastric arteries. F ollowing this, protamine was given to partially reverse the heparin re-peritonealization was carried out over the limbs as well as the aorta. Following completion of this, bowel was returned to the abd ominal cavity. Counts were correct and the fascia was then closed with a running double stranded #1 PDS suture. Subcutaneous tissue and skin were closed in layers.
[2017-06-29] MEDS: Vancomycin HCl 1 GM in Premix Bag 1 BAG IVPB SCH (17:37)
[2017-06-29] MEDS ORDERED: Naloxone HCl 0.4 mg/ml Vial IV PRN (17:48)
[2017-06-29] MEDS ORDERED: Fentanyl 5000 MCG/250 ML CADD IVPB PRN (17:48)
[2017-06-29] MEDS ORDERED: diphenhydrAMINE 50 MG/ML VIAL IVP PRN (17:48)
[2017-06-29] MEDS ORDERED: Zolpidem Tartrate 5 MG TAB PO PRN (17:48)
[2017-06-29] MEDS ORDERED: diphenhydrAMINE 50 MG/ML VIAL IM PRN (17:48)
[2017-06-29] MEDS ORDERED: diphenhydrAMINE 25 MG CAP PO PRN (17:48)
[2017-06-29] MEDS ORDERED: Communication Order-Pharmacy FS SCH (18:00)
[2017-06-29] MEDS: fentaNYL Citrate/PF 2,000 MCG in Sodium Chloride 0.9% 60 ML IV PRN (18:07)
[2017-06-29] MEDS ORDERED: Metoprolol Tartrate 25 MG TAB PO SCH (21:00)
[2017-06-30] MEDS: Acetaminophen 325 MG TAB PO PRN ×4 (02:10→21:28)
[2017-06-30] MEDS: Vancomycin HCl 1 GM in Premix Bag 1 BAG IVPB SCH (05:02)
[2017-06-30] MEDS: Ketorolac Tromethamine 30 MG/ML VIAL IVP SCH (05:02)
[2017-06-30] MEDS: Lactated Ringer's 1,000 ML IV SCH ×4 (05:03→20:56)
[2017-06-30] MEDS: CEFAZOLIN/Water 2 GM/20 ML SYRINGE SLOW IVP SCH (05:03)
[2017-06-30 06:05] LABS: #Lymphocytes 2.9 thou/uL (1.20-3.40); #Monocytes 0.7 thou/uL (0.11-0.59); #Neutrophils 9.4 thou/uL (1.40-6.50); %Basophils 0.3 % (0.0-1.0); %Eosinophils 0.1 % (0.0-10.0); %Lymphocytes 22.3 % (21.0-51.0); %Monocytes 5.6 % (0.0-10.0); %Neutrophils 71.7 % (42.0-75.0); Hemoglobin 11.8 g/dL (12.0-16.0); Mean Corpuscular HGB CONC 34.2 g/dL (32.0-36.0); Mean Corpuscular Hemoglobin 33.4 pg (27.0-31.0); Mean Corpuscular Volume 97.8 fl (81.0-99.0); Mean Platelet Volume 7.2 fL (7.4-10.4); Platelet Count 222 thou/uL (130-400); RBC Distribution Width 11.7 % (11.5-14.5); Red Blood Cell (RBC) Count 3.54 mill/uL (4.20-5.40); White Blood Cell (WBC) Count 13.1 thou/uL (4.8-10.8)
[2017-06-30 06:27] LABS: Anion Gap 14 mmol/L (10-20); BUN (Urea Nitrogen) 11 mg/dL (7.0-18.7); Calc. Creatinine Clearance 141 mL/min (70-130); Calcium 8.3 mg/dL (7.8-10.44); Carbon Dioxide 22 mmol/L (22-29); Chloride 103 mmol/L (98-107); Estimated GFR-MDRD 85; Glucose 120 mg/dL (70-105); Potassium 3.8 mmol/L (3.5-5.1); Sodium 135 mmol/L (136-145)
[2017-06-30] MEDS: Metoprolol Tartrate 25 MG TAB PO SCH ×2 (08:17→20:51)
[2017-06-30] MEDS: Enoxaparin Sodium 40 MG/0.4 ML SYRINGE SC SCH (08:18)
[2017-06-30] MEDS: Clopidogrel Bisulfate 75 MG TAB PO SCH (08:18)
[2017-06-30 12:41] VITALS: BMI 36.3
[2017-06-30] MEDS: fentaNYL Citrate/PF 2,000 MCG in Sodium Chloride 0.9% 60 ML IV PRN (18:25)
[2017-06-30] MEDS: Gabapentin 300 MG CAP PO SCH (20:51)
[2017-06-30] MEDS: Cyclobenzaprine 10 MG TAB PO PRN (21:28)
[2017-07-01] MEDS ORDERED: Lactated Ringer's 1,000 ML IV SCH (08:04)
[2017-07-01] MEDS: Metoprolol Tartrate 25 MG TAB PO SCH ×2 (11:00→20:37)
[2017-07-01] MEDS: Clopidogrel Bisulfate 75 MG TAB PO SCH (11:01)
[2017-07-01] MEDS: Gabapentin 300 MG CAP PO SCH ×2 (11:01→20:37)
[2017-07-01] MEDS: Enoxaparin Sodium 40 MG/0.4 ML SYRINGE SC SCH (11:02)
[2017-07-01] MEDS: Lactated Ringer's 1,000 ML IV SCH (14:14)
[2017-07-02] MEDS: Cyclobenzaprine 10 MG TAB PO PRN (05:22)
[2017-07-02] MEDS: Acetaminophen 325 MG TAB PO PRN (05:22)
[2017-07-02] MEDS: fentaNYL Citrate/PF 2,000 MCG in Sodium Chloride 0.9% 60 ML IV PRN (06:24)
[2017-07-02] MEDS ORDERED: HYDROcodone/Acetaminophen 5/325 mg Tablet PO PRN (07:08)
[2017-07-02] MEDS ORDERED: ESTRADIOL 0.075 MG TD SCH (09:00)
[2017-07-02] MEDS: Clopidogrel Bisulfate 75 MG TAB PO SCH (09:28)
[2017-07-02] MEDS: Polyethylene Glycol 3350 17 GM Packet PO SCH (09:28)
[2017-07-02] MEDS: Metoprolol Tartrate 25 MG TAB PO SCH ×2 (09:28→21:17)
[2017-07-02] MEDS: Gabapentin 300 MG CAP PO SCH ×2 (09:29→21:17)
[2017-07-02] MEDS: Enoxaparin Sodium 40 MG/0.4 ML SYRINGE SC SCH (09:29)
[2017-07-02] MEDS: HYDROcodone/Acetaminophen 5/325 mg Tablet PO PRN (21:19)
[2017-07-03] MEDS: Acetaminophen 325 MG TAB PO PRN (03:44)
[2017-07-03] MEDS: HYDROcodone/Acetaminophen 5/325 mg Tablet PO PRN (08:15)
[2017-07-03] MEDS: Clopidogrel Bisulfate 75 MG TAB PO SCH (08:16)
[2017-07-03] MEDS: Metoprolol Tartrate 25 MG TAB PO SCH (08:16)
[2017-07-03] MEDS: Enoxaparin Sodium 40 MG/0.4 ML SYRINGE SC SCH (08:16)
[2017-07-03] MEDS: Gabapentin 300 MG CAP PO SCH (08:16)
[2017-07-03] MEDS: Polyethylene Glycol 3350 17 GM Packet PO SCH (08:17)
[2017-07-03 08:28] VITALS: BP 99/61; TEMP 97.6
--- NOTE | 2017-07-03 14:40 | DIS ---
HOSPITAL COURSE: The patient was admitted where she underwent an aorta by external iliac artery bypa ss from the distal aorta to the proximal to mid external iliac arteries with a 12 x 7 graft. Postope rative course was uneventful. The patient was ambulating in the halls without difficulty, had no fur ther rest pain in her right foot. She will be discharged home today to begin half dose of her metopr olol at 12.5 b.i.d., hold her lisinopril, resume her Plavix and she is unable to take aspirin and res ume her statin therapy. She has received a prescription for Flexeril 10 t.i.d. #15, Tylenol #3 #25 w ith 2 refills. Discharge and follow up instructions have been given.
== END 2017-07-03 11:15 | disposition home or self-care (01) | DRG 236 ==
LOC: SURG A 06-29 05:38 → CCU 06-29 12:03 → SJJU 07-01 08:41
PROVIDERS: ADMIT Thoracic Surgery (Cardiothoracic Vascular Surgery); ATTEND Thoracic Surgery (Cardiothoracic Vascular Surgery)
PROC: 02100AW Bypass Coronary Artery, One Artery from Aorta with Autologous Arterial Tissue, Open Approach (ICD-10-PCS; principal; 2017-06-29)
DX: I73.9 Peripheral vascular disease, unspecified (principal); E66.9 Obesity, unspecified; Z79.02 Long term (current) use of antithrombotics/antiplatelets; Z68.36 Body mass index [BMI] 36.0-36.9, adult; Z88.6 Allergy status to analgesic agent; I10 Essential (primary) hypertension; E78.5 Hyperlipidemia, unspecified
CPT/HCPCS: 36415; 36416; 80048; 85025; A4216; G8978-GP-CL; G8979-GP-CJ; J0360; J1100; J1170; J1642; J1644; J1650; J1885; J2001; J2250; J2370; J2405; J2550; J2704; J2720; J3010; J3370; J7050; P9045

== ENCOUNTER 2017-06-28 09:09 | Outpatient (CLI) | payer BC ==
[2017-06-28 10:17] LABS: Hemoglobin 15.8 g/dL (12.0-16.0); Mean Corpuscular HGB CONC 33.8 g/dL (32.0-36.0); Mean Corpuscular Hemoglobin 33.3 pg (27.0-31.0); Mean Corpuscular Volume 98.5 fl (81.0-99.0); Mean Platelet Volume 7.7 fL (7.4-10.4); Platelet Count 306 thou/uL (130-400); RBC Distribution Width 11.6 % (11.5-14.5); Red Blood Cell (RBC) Count 4.75 mill/uL (4.20-5.40); White Blood Cell (WBC) Count 10.2 thou/uL (4.8-10.8)
[2017-06-28 10:26] LABS: Anion Gap 13 mmol/L (10-20); BUN (Urea Nitrogen) 15 mg/dL (7.0-18.7); Calc. Creatinine Clearance 0 mL/min (70-130); Calcium 9.9 mg/dL (7.8-10.44); Carbon Dioxide 26 mmol/L (22-29); Chloride 99 mmol/L (98-107); Estimated GFR-MDRD 81; Glucose 109 mg/dL (70-105); Potassium 4.2 mmol/L (3.5-5.1); Sodium 134 mmol/L (136-145)
--- NOTE | 2017-06-28 21:09 | EKG ---
Test Reason : Blood Pressure : / mmHG Vent. Rate : 080 BPM Atrial Rate : 080 BPM P-R Int : 148 ms QRS Dur : 070 ms QT Int : 364 ms P-R-T Axes : 079 080 073 degrees QTc Int : 419 ms Normal sinus rhythm Normal ECG When compared with ECG of 16-JUN-2017 00:56, (Unconfirmed) Questionable change in QRS axis Confirmed by ERNESTO VALENTINE ([id number]) on 06/28/2017 9:09:06 PM Referred By: SANTA Confirmed By:ERNESTO VALENTINE
== END 2017-06-28 09:10 | disposition home or self-care (01) ==
LOC: LABBT 09:09
PROVIDERS: ATTEND Thoracic Surgery (Cardiothoracic Vascular Surgery)
DX: Z01.818 Encounter for other preprocedural examination (principal); I73.9 Peripheral vascular disease, unspecified
CPT/HCPCS: 36430; 80048; 85027; 86850; 86900; 86901; 93005; 93010

== ENCOUNTER 2017-10-13 14:13 | Outpatient (CLI) | payer BC | END 2017-10-13 14:14 | disposition home or self-care (01) | LOC: BICMAMMO 14:13 | PROVIDERS: ATTEND Family Medicine | DX: Z12.31 Encounter for screening mammogram for malignant neoplasm of breast (principal); Z80.3 Family history of malignant neoplasm of breast | CPT/HCPCS: 77063; 77067 ==

== ENCOUNTER 2019-02-03 11:47 | Outpatient (CLI) | payer BC ==
--- NOTE | 2019-02-03 13:16 | RAD ---
CERVICAL SPINE 2 VIEWS: HISTORY: Neck and bilateral shoulder pain. FINDINGS: Vertebral bodies are normal in height. There are degenerative osteophytes without disk narrowing. D egenerative facet changes are noted. Carotid bulb calcifications are present. IMPRESSION: Mild arthritic changes of the spine. POS: TPC
== END 2019-02-03 11:48 | disposition home or self-care (01) ==
LOC: BICRAD 11:47
PROVIDERS: ATTEND Physician Assistant
DX: R20.2 Paresthesia of skin (principal); M46.92 Unspecified inflammatory spondylopathy, cervical region
CPT/HCPCS: 36415; 72040; 80053; 82607; 84443; 85025

== ENCOUNTER 2019-02-20 18:50 | Emergency (ER) | payer BC ==
[2019-02-20 20:32] LABS: #Eosinphils 0.1 thou/uL (0.0-0.7); #Monocytes 0.4 thou/uL (0.11-0.59); #Neutrophils 6.5 thou/uL (1.40-6.50); %Basophils 0.3 % (0.0-1.0); %Eosinophils 1.4 % (0.0-10.0); %Lymphocytes 29.9 % (21.0-51.0); %Monocytes 4.1 % (0.0-10.0); %Neutrophils 64.4 % (42.0-75.0); Hemoglobin 13.8 g/dL (12.0-16.0); Mean Corpuscular HGB CONC 34.4 g/dL (32.0-36.0); Mean Corpuscular Hemoglobin 33.1 pg (27.0-31.0); Mean Corpuscular Volume 96.4 fL (78.0-98.0); Mean Platelet Volume 7.3 fL (7.4-10.4); Platelet Count 277 thou/uL (130-400); RBC Distribution Width 11.9 % (11.5-14.5); Red Blood Cell (RBC) Count 4.17 mill/uL (4.20-5.40); White Blood Cell (WBC) Count 10.1 thou/uL (4.8-10.8)
[2019-02-20 20:58] LABS: ALT (SGPT) 8 U/L (8-55); AST (SGOT) 13 U/L (5-34); Albumin 4.1 g/dL (3.5-5.0); Alkaline Phosphatase 98 U/L (40-110); Anion Gap 12 mmol/L (10-20); BUN (Urea Nitrogen) 10 mg/dL (7.0-18.7); Bilirubin, Total 0.2 mg/dL (0.2-1.2); Calc. Creatinine Clearance 0 mL/min (70-130); Calcium 9.4 mg/dL (7.8-10.44); Carbon Dioxide 28 mmol/L (22-29); Chloride 101 mmol/L (98-107); Estimated GFR-MDRD 80; Globulin 2.8 g/dL (2.4-3.5); Glucose 117 mg/dL (70-105); Potassium 3.2 mmol/L (3.5-5.1); Protein, Total 6.9 g/dL (6.0-8.3); Sodium 138 mmol/L (136-145)
[2019-02-20 21:26] LABS: Bilirubin Negative (Negative); Blood, Urine Negative (Negative); Clarity Clear (Clear); Glucose, Urine (Dipstick) Normal (Negative); Leukocyte Negative Leu/uL (Negative); Nitrite Negative (Negative); Protein, Urine (Dipstick) Negative (Neg-Trace); Urobilinogen Normal mg/dL (Less than 2)
[2019-02-20] MEDS ORDERED: Fentanyl 100 MCG/2 ML VIAL ONE (21:28)
--- NOTE | 2019-02-20 21:54 | CT ---
Exam: Abdomen CT without contrast Pelvic CT without contrast HISTORY: Right flank pain. COMPARISON: 05/03/2015, 06/12/2017 FINDINGS: Abdomen CT: Lung bases:Minimal atelectatic change Heart size: Normal heart size. No significant pericardial fluid Aorta: Normal caliber aorta. Atherosclerosis. Right common iliac artery stent Solid organs: Limited evaluation due to lack of IV contrast. Grossly no solid organ abnormality Lymph nodes: No gastrohepatic, retrocrural or periportal lymphadenopathy Gallbladder: Unremarkable Mesentery: No lymphadenopathy, free air or free fluid. There is a 1.0 x 1.9 cm hypodensity with centr al calcification in the right lower quadrant, incompletely evaluated and nonspecific. Kidneys: Bilaterally, no hydronephrosis, nephrolithiasis or perinephric fat stranding. Bilateral uret ers have a normal caliber. No hydroureter, periureteral fat stranding or ureterolithiasis. Alimentary canal: Limited evaluation by the lack of oral contrast. No evidence of bowel obstruction. There is a anterior abdominal wall hernia with a 5 cm defect. The hernia sac measures 11.5 x 4.3 cm. There is evidence of small bowel as well as colon extending through the defect. No evidence of ariela wel obstruction. Ileocecal junction is unremarkable. Normal caliber appendix. CT PELVIS: No mass, adenopathy, free air or free fluid. Surgically absent uterus Urinary bladder: Unremarkable. Osseous structures: No lytic or blastic lesions IMPRESSION: 1. No evidence of obstructive uropathy 2. Normal caliber appendix 3. Ventral abdominal wall hernia containing small bowel and colon. No evidence of bowel obstruction. 4. Soft tissue density with associated calcification in the right lower quadrant mesentery. Incomplet e evaluation. Possibility of a carcinoid tumor cannot be entirely excluded. Results study discussed with Dr. Ji 02/20/2019 at 10:21 PM Code CR
== END 2019-02-20 22:18 | disposition home or self-care (01) ==
LOC: ERS 18:50
DX: R10.9 Unspecified abdominal pain (principal); F32.9 Major depressive disorder, single episode, unspecified; F41.9 Anxiety disorder, unspecified; F17.210 Nicotine dependence, cigarettes, uncomplicated; Z79.899 Other long term (current) drug therapy
CPT/HCPCS: 36415; 74176; 80053; 81003; 83690; 85025; 96361; 96374; J3010

== ENCOUNTER 2019-03-03 12:49 | Outpatient (CLI) | payer BC ==
--- NOTE | 2019-03-03 14:03 | MRI ---
MRI lumbar spine noncontrast: HISTORY: Lumbago with sciatica COMPARISON: None FINDINGS: Appropriate T1 marrow signal intensity lumbar vertebra. Lumbar spine vertebral body height is maintai ruth. No fracture. No significant STIR hyperintensity to suggest vertebral body edema or ligamentous injury Appropriate signal intensity of the paraspinal muscles and solid organs Conus medullaris terminates at the mid L1 level T11-T12: Based on the sagittal images, there does appear to be a posterior disc bulge with at least m ild central canal stenosis. T12-L1:Minimal left right paracentral disc bulges. Mild central canal stenosis. Neural foramina are p atent L1-L2:Desiccation with moderate loss of disc space height. Broad-based disc bulge with a right subart icular disc protrusion. Mild central canal stenosis. Bilaterally, the neural foramina are patent. There is a T2 and STIR hyperintensity involving the disc at the level of the right subarticular protr usion suggesting a small annular fissure L2-L3:Adequate disc hydration. No significant central canal stenosis or significant neural foraminal narrowing L3-L4:Adequate disc hydration. No significant central canal stenosis or significant neural foraminal narrowing L4-L5:Adequate disc hydration. No significant central canal stenosis or significant neural foraminal narrowing L5-S1:Adequate disc hydration. Broad-based disc bulge with a small central disc protrusion. No signif icant central canal stenosis. Bilaterally the neural foramina are patent Probable incidental Tarlov cyst at S2-S3, incompletely evaluated IMPRESSION: Degenerative disc disease of the lumbar spine as described above.
== END 2019-03-03 12:50 | disposition home or self-care (01) ==
LOC: BICMRI 12:49
PROVIDERS: ATTEND Physician Assistant
DX: M54.42 Lumbago with sciatica, left side (principal); M54.41 Lumbago with sciatica, right side; G89.29 Other chronic pain; M51.36 Other intervertebral disc degeneration, lumbar region
CPT/HCPCS: 72148

== ENCOUNTER 2019-03-05 09:08 | Emergency (ER) | payer BC ==
[2019-03-05 09:44] LABS: #Eosinphils 0.2 thou/uL (0.0-0.7); #Monocytes 0.5 thou/uL (0.11-0.59); #Neutrophils 4.5 thou/uL (1.40-6.50); %Basophils 0.5 % (0.0-1.0); %Lymphocytes 36.7 % (21.0-51.0); %Monocytes 5.8 % (0.0-10.0); %Neutrophils 55.1 % (42.0-75.0); Hemoglobin 14.4 g/dL (12.0-16.0); Mean Corpuscular HGB CONC 35.3 g/dL (32.0-36.0); Mean Corpuscular Volume 96.2 fL (78.0-98.0); Mean Platelet Volume 7.2 fL (7.4-10.4); Platelet Count 304 thou/uL (130-400); RBC Distribution Width 11.5 % (11.5-14.5); Red Blood Cell (RBC) Count 4.24 mill/uL (4.20-5.40); White Blood Cell (WBC) Count 8.1 thou/uL (4.8-10.8)
[2019-03-05 10:07] LABS: ALT (SGPT) 10 U/L (8-55); AST (SGOT) 16 U/L (5-34); Albumin 4.2 g/dL (3.5-5.0); Alkaline Phosphatase 104 U/L (40-110); Anion Gap 12 mmol/L (10-20); BUN (Urea Nitrogen) 7 mg/dL (7.0-18.7); Bilirubin, Total 0.2 mg/dL (0.2-1.2); Calc. Creatinine Clearance 0 mL/min (70-130); Calcium 9.4 mg/dL (7.8-10.44); Carbon Dioxide 26 mmol/L (22-29); Chloride 97 mmol/L (98-107); Estimated GFR-MDRD 82; Globulin 2.8 g/dL (2.4-3.5); Glucose 103 mg/dL (70-105); Lipase 39 U/L (8-78); Potassium 3.1 mmol/L (3.5-5.1); Sodium 132 mmol/L (136-145)
[2019-03-05 10:57] LABS: Bacteria/HPF 3+ HPF (None Seen); Bilirubin Negative (Negative); Blood, Urine Negative (Negative); Clarity Clear (Clear); Glucose, Urine (Dipstick) Normal (Negative); Leukocyte Negative Leu/uL (Negative); Nitrite 1+ (Negative); Protein, Urine (Dipstick) Negative (Neg-Trace); RBC/HPF 0-3 HPF (0-3); Urobilinogen Normal mg/dL (Less than 2)
[2019-03-05] MEDS ORDERED: Morphine 4 MG/ML VIAL ONE (12:06)
[2019-03-05] MEDS ORDERED: Acetaminophen 325 MG TAB ONE (12:06)
[2019-03-05] MEDS ORDERED: Ondansetron PF 4 MG/2 ML Vial ONE (12:06)
== END 2019-03-05 12:49 | disposition home or self-care (01) ==
LOC: ERS 09:08
DX: C76.2 Malignant neoplasm of abdomen (principal); I10 Essential (primary) hypertension; G62.9 Polyneuropathy, unspecified; F17.210 Nicotine dependence, cigarettes, uncomplicated; F32.9 Major depressive disorder, single episode, unspecified; F41.9 Anxiety disorder, unspecified
CPT/HCPCS: 36415; 80053; 81003; 81015; 83690; 85025; 96374; 96375; J2270; J2405

== ENCOUNTER 2019-03-09 10:56 | Inpatient (IN) | payer BC, OTHER ==
[2019-03-23 08:36] VITALS: BMI 32.8
[2019-03-24] MEDS ORDERED: ceFOXitin 2 GM/50 ML Duplex BAG ONE (07:37)
[2019-03-24] MEDS ORDERED: Ketorolac Tromethamine 30 MG/ML VIAL ONE (07:37)
[2019-03-24 08:09] LABS: #Eosinphils 0.2 thou/uL (0.0-0.7); #Lymphocytes 2.8 thou/uL (1.20-3.40); #Monocytes 0.6 thou/uL (0.11-0.59); #Neutrophils 5.8 thou/uL (1.40-6.50); %Basophils 0.3 % (0.0-1.0); %Eosinophils 2.4 % (0.0-10.0); %Lymphocytes 29.6 % (21.0-51.0); %Monocytes 6.1 % (0.0-10.0); %Neutrophils 61.6 % (42.0-75.0); Hemoglobin 14.5 g/dL (12.0-16.0); Mean Corpuscular HGB CONC 35.7 g/dL (32.0-36.0); Mean Corpuscular Hemoglobin 33.5 pg (27.0-31.0); Mean Platelet Volume 7.7 fL (7.4-10.4); Platelet Count 267 thou/uL (130-400); RBC Distribution Width 11.3 % (11.5-14.5); Red Blood Cell (RBC) Count 4.33 mill/uL (4.20-5.40); White Blood Cell (WBC) Count 9.4 thou/uL (4.8-10.8)
[2019-03-24 08:16] LABS: Hemoglobin A1c 5.2 % (4.0-6.0)
[2019-03-24 08:19] LABS: Anion Gap 14 mmol/L (10-20); BUN (Urea Nitrogen) 16 mg/dL (7.0-18.7); Calc. Creatinine Clearance 117 mL/min (70-130); Carbon Dioxide 21 mmol/L (22-29); Chloride 102 mmol/L (98-107); Estimated GFR-MDRD 80; Glucose 113 mg/dL (70-105); Potassium 3.6 mmol/L (3.5-5.1); Sodium 133 mmol/L (136-145)
[2019-03-24] MEDS ORDERED: Fentanyl 100 MCG/2 ML VIAL ONE ×2 (08:41→09:01)
[2019-03-24] MEDS ORDERED: Midazolam HCl 2 mg/2 ml Vial ONE (08:41)
[2019-03-24] MEDS ORDERED: EPINEPHrine 1 MG/ML AMP ONE (08:44)
[2019-03-24] MEDS ORDERED: Bupivacaine 0.25% HCL 30 ML VIAL ONE (08:44)
[2019-03-24] MEDS ORDERED: Lidocaine 2% Jelly 5 ML TUBE ONE (09:01)
[2019-03-24] MEDS ORDERED: HYDROmorphone 0.5 MG/0.5 ML SYRINGE ONE (09:01)
[2019-03-24] MEDS ORDERED: Dexamethasone 20 MG/5 ML VIAL ONE (10:49)
[2019-03-24] MEDS ORDERED: Lidocaine 1% PF 5 ML VIAL ONE (10:49)
[2019-03-24] MEDS ORDERED: Rocuronium Bromide 10 MG/ML (10ML VIAL) ONE (10:49)
[2019-03-24] MEDS ORDERED: Ondansetron PF 4 MG/2 ML Vial ONE (10:49)
[2019-03-24] MEDS ORDERED: ePHEDrine/0.9% NaCl/PF SYRINGE 50 mg/10 ml ONE (10:49)
[2019-03-24] MEDS ORDERED: Bupivacaine HCl 0.5%/Epinephrine 1:200,000/PF 30 ml Vial ONE (10:49)
[2019-03-24] MEDS ORDERED: PHENYLEPHRINE-NS 100 MCG/ML 10 ML SYRINGE ONE (10:49)
[2019-03-24] MEDS ORDERED: PROPOFOL 200 MG/20 ML VIAL ONE (10:49)
[2019-03-24] MEDS ORDERED: Glycopyrrolate 0.2 MG/ML 5 ML SYRINGE ONE (10:49)
[2019-03-24] MEDS ORDERED: Morphine 4 MG/ML VIAL ONE (12:14)
[2019-03-24] MEDS ORDERED: Morphine 2 MG/ML SYRINGE ONE ×2 (12:23→12:51)
[2019-03-24] MEDS ORDERED: HYDROcodone/Acetaminophen 5/325 mg Tablet ONE (14:48)
--- NOTE | 2019-03-24 16:34 | EKG ---
Test Reason : PREOP Blood Pressure : / mmHG Vent. Rate : 064 BPM Atrial Rate : 064 BPM P-R Int : 166 ms QRS Dur : 074 ms QT Int : 406 ms P-R-T Axes : 068 058 044 degrees QTc Int : 418 ms Normal sinus rhythm minimal ns ST change When compared with ECG of 28-JUN-2017 08:33, No significant change was found Confirmed by DR. Nico GALE ([id number]) on 03/24/2019 4:34:05 PM Referred By: CARLOS Confirmed By:DR. Nico GALE
--- NOTE | 2019-03-30 14:28 | OP ---
DATE OF PROCEDURE: 03/24/2019 PROCEDURE PERFORMED: Laparoscopic hand-assisted excision of mesenteric mass with incidental appendectomy and repair of ventral incisional hernia. HISTORY: Ms. Pang is a 48-year-old woman with a symptomatic ventral incisional hernia for which she desires repair. This was from an aortic surgery with graft placement. She was also noted on a recent CT to have a calcified mass in the right lower quadrant mesentery of the bowel, worrisome for a carcinoid tumor and resection was recommended. She is asymptomatic from this. A previous CT is obtained from [place]. It did not show any mesenteric mass and a pelvic ultrasound did not show ovaries on either side. The patient has had a hysterectomy in the past, but thought that one of her ovaries had been left. DESCRIPTION OF PROCEDURE: After informed consent was obtained and appropriate preoperative antibiotics administered, the patient was taken to the operating room. She was placed in a supine position and general endotracheal anesthesia was administered. She was prepped and draped in a standard sterile fashion and the skin incision overlying her ventral incisional hernia was reopened. Dissection was carried down to the hernia sac, which was dissected free circumferentially down to the level of the fascia. The hernia sac was opened and found to be empty. The hernia sac was resected and a GelPort was placed through the ventral defect and insufflation obtained. A trocar was placed through the GelPort and additional dissecting trocars were placed into the abdomen under direct laparoscopic vision. The bowel was then completely run from the ligament of Treitz to the ileocecal valve, and no palpable intraluminal masses were felt. In addition, no palpable mesenteric masses were felt from the ligament of Treitz to the ileocecal valve despite multiple examinations. The examination was then extended to the colon. The patient's appendix was normal in appearance, but there was a firm oval soft tissue mass in the mesoappendix consistent with the appearance and location of the soft tissue density noted on her CT scan. This was well above the level of the normal ovary and there was only scar tissue on the left side consistent with previous excision of an ovary. It was felt that even if this was ovarian tissue, that is, given its somewhat abnormal location and presence of calcifications on CT, it should be excised and since the possibility of mesenteric carcinoid could not be excluded, the entire mesoappendix including the adherent mass was resected and the appendix ligated and divided between endo-loops and the appendix with the mass was removed en bloc and sent to Pathology. The operative site was then examined for hemostasis, which was excellent. No unusual lymph nodes were felt in the mesentery or the mesoappendix. The colon was grossly normal, though there was stool present, so it could not be completely evaluated. The laparoscopic trocars were removed and hemostasis verified. The GelPort was then removed. The omentum returned to its normal location under the GelPort and Seprafilm placed. The fascia was then reapproximated with running PDS sutures and the wounds irrigated. Subcutaneous tissues were reapproximated with 3-0 Monocryl suture and skin was closed with 4-0 Monocryl suture. The patient was extubated and taken to Recovery in good condition. ESTIMATED BLOOD LOSS: Minimal. COMPLICATIONS: There were no complications. SPECIMEN: Appendix with mesenteric mass. Job ID: [id number]
== END 2019-03-24 16:48 | disposition home or self-care (01) | DRG 343 ==
LOC: SURG A 03-24 06:39 → EDSTATUS 03-24 13:47
PROVIDERS: ADMIT Surgery; ATTEND Surgery
PROC: 0WQF0ZZ Repair Abdominal Wall, Open Approach (ICD-10-PCS; principal; 2019-03-24)
PROC: 0DTJ0ZZ Resection of Appendix, Open Approach (ICD-10-PCS; 2019-03-24)
PROC: 0DBV0ZZ Excision of Mesentery, Open Approach (ICD-10-PCS; 2019-03-24)
DX: K43.2 Incisional hernia without obstruction or gangrene (principal); K66.8 Other specified disorders of peritoneum; I10 Essential (primary) hypertension; F32.9 Major depressive disorder, single episode, unspecified; M47.816 Spondylosis without myelopathy or radiculopathy, lumbar region; I25.10 Atherosclerotic heart disease of native coronary artery without angina pectoris; G43.909 Migraine, unspecified, not intractable, without status migrainosus; J30.2 Other seasonal allergic rhinitis; M19.90 Unspecified osteoarthritis, unspecified site; E66.9 Obesity, unspecified; Z88.8 Allergy status to other drugs, medicaments and biological substances; Z90.710 Acquired absence of both cervix and uterus; Z68.32 Body mass index [BMI] 32.0-32.9, adult; Z79.02 Long term (current) use of antithrombotics/antiplatelets; Z79.899 Other long term (current) drug therapy; Z87.891 Personal history of nicotine dependence
CPT/HCPCS: 80048; 83036; 85025; 88302; 88304; 93005; 93010; J0171; J0670; J0694; J1100; J1170; J1885; J2001; J2250; J2270; J2405; J2704; J3010; S0020

== ENCOUNTER 2019-08-30 17:06 | Emergency (ER) | payer BC, OTHER ==
[~2019-08-30 17:06] MED LIST changes: -ISOVUE-370 76%-LOCM 1 ML ONE; +Magnevist 469MG/ML 20 ML VIAL ONE
[2019-08-30] MEDS ORDERED: Morphine 4 MG/ML VIAL ONE (17:33)
--- NOTE | 2019-08-30 21:07 | MRI ---
MRI OF THE LUMBAR SPINE WITH AND WITHOUT IV CONTRAST: 08/30/19 HISTORY: Low back pain with bilateral hip pain and leg weakness, urinary incontinence. Low back surgery with s teroid injections. COMPARISON: Noncontrasted exam of 03/03/19. The vertebral body heights and marrow signal are maintained. Conus medullaris ends at L1 level. The small left disc bulge at T12-L2 level and a moderate sized right focal disc bulge at L1-2 level a re stable. There is mild central canal stenosis. There is a focus of T2 hyperintensity with postcontrast enhancement involving the right lateral aspec t of the L4-5 disc consistent with annular tear without focal disc herniation, central canal stenosis or neural foraminal stenosis. A small focal central disc protrusion is seen at L5-S1 level with impingement of the anterior thecal sac and mild central canal stenosis. No neural foraminal stenosis is noted. There is disc desiccation at T12-L1, L1-2, and L5-S1 levels. The Tarlov cyst at S2-3 level is again s een. No other areas of abnormal postcontrast enhancement are noted. The paraspinal musculature is unr emarkable. IMPRESSION: Degenerative disc disease as discussed above with a tiny new annular tear involving the lateral aspec t of the L4-5 disc. POS: NICOLETTE
== END 2019-08-30 20:02 | disposition home or self-care (01) ==
LOC: ERS 17:06
DX: M51.36 Other intervertebral disc degeneration, lumbar region (principal); I10 Essential (primary) hypertension; G62.9 Polyneuropathy, unspecified; F41.9 Anxiety disorder, unspecified; F32.9 Major depressive disorder, single episode, unspecified; F17.210 Nicotine dependence, cigarettes, uncomplicated; Z79.899 Other long term (current) drug therapy
CPT/HCPCS: 72158; 96374; A9579; J2270

== ENCOUNTER 2020-01-22 11:29 | Emergency (ER) | payer BC, OTHER ==
[2020-01-22] MEDS ORDERED: Acetaminophen 500 MG TAB ONE (12:41)
[2020-01-22] MEDS ORDERED: Ketorolac Tromethamine 30 MG/ML VIAL ONE (12:41)
[2020-01-22] MEDS ORDERED: Ondansetron PF 4 MG/2 ML Vial ONE (12:41)
[2020-01-22] MEDS ORDERED: methylPREDNISolone Sod Succ/PF 125 MG/2 ML VIAL ONE (13:50)
[2020-01-22] MEDS ORDERED: Magnesium 2 GM/50 ML BAG (IN WATER) ONE (13:50)
--- NOTE | 2020-01-22 13:56 | CT ---
CT Brain WO Con: 01/22/2020 1:34 PM CLINICAL HISTORY: Headache. IMAGING TECHNIQUE: Multiple CT images were obtained of the brain without IV contrast. COMPARISON: CT the brain without contrast dated June 16, 2017 FINDINGS: BRAIN: Evidence of acute infarct: No definite acute infarct. Small subtle hypodensity along the lateral mar gin of the anterior horn of the right frontal lobe is stable. Evidence of chronic ischemic change:None. Evidence of intracranial hemorrhage: None. Evidence of brain volume loss:None. Evidence of midline shift: Third ventricle and septum pellucidum are midline. Ventricles: Normal. No hydrocephalus. SKULL: Intact. VISUALIZED PARANASAL SINUSES: Clear. MASTOID AIR CELLS: Clear. EXTRACRANIAL SOFT TISSUES: Normal. IMPRESSION: No acute intracranial abnormality.
== END 2020-01-22 15:17 | disposition home or self-care (01) ==
LOC: ERS 11:29
DX: R51.9 Headache, unspecified (principal); F41.9 Anxiety disorder, unspecified; F32.9 Major depressive disorder, single episode, unspecified; I10 Essential (primary) hypertension; F17.210 Nicotine dependence, cigarettes, uncomplicated; Z79.899 Other long term (current) drug therapy
CPT/HCPCS: 70450; 96365; 96375; J1885; J2405; J2930; J3475

== ENCOUNTER 2020-01-23 18:36 | Emergency (ER) | payer BC, SELFPAY ==
[2020-01-23] MEDS ORDERED: Metoclopramide HCl 10 MG/2 ML VIAL ONE (19:23)
[2020-01-23] MEDS ORDERED: Ketorolac Tromethamine 30 MG/ML VIAL ONE (19:23)
[2020-01-23 19:47] LABS: #Basophils 0.1 thou/uL (0.0-0.2); #Eosinphils 0.1 thou/uL (0.0-0.7); #Lymphocytes 4.3 thou/uL (1.20-3.40); #Monocytes 0.6 thou/uL (0.11-0.59); #Neutrophils 8.4 thou/uL (1.40-6.50); %Basophils 0.9 % (0.0-1.0); %Eosinophils 0.7 % (0.0-10.0); %Lymphocytes 31.9 % (21.0-51.0); %Monocytes 4.2 % (0.0-10.0); %Neutrophils 62.3 % (42.0-75.0); Hemoglobin 13.6 g/dL (12.0-16.0); Mean Corpuscular HGB CONC 35.9 g/dL (32.0-36.0); Mean Corpuscular Hemoglobin 34.7 pg (27.0-31.0); Mean Corpuscular Volume 96.5 fL (78.0-98.0); Mean Platelet Volume 7.1 fL (7.4-10.4); Platelet Count 291 thou/uL (130-400); RBC Distribution Width 11.1 % (11.5-14.5); Red Blood Cell (RBC) Count 3.93 mill/uL (4.20-5.40); White Blood Cell (WBC) Count 13.4 thou/uL (4.8-10.8)
[2020-01-23] MEDS ORDERED: VALPROATE SODIUM IVPB SCH (20:00)
[2020-01-23] MEDS ORDERED: SODIUM CHLORIDE 0.9% IVPB SCH (20:00)
[2020-01-23 20:11] LABS: ALT (SGPT) 10 U/L (8-55); AST (SGOT) 14 U/L (5-34); Albumin 3.6 g/dL (3.5-5.0); Alkaline Phosphatase 81 U/L (40-110); Anion Gap 13 mmol/L (10-20); BUN (Urea Nitrogen) 15 mg/dL (7.0-18.7); Bilirubin, Total Less than 0.2 mg/dL (0.2-1.2); Calc. Creatinine Clearance 112 mL/min (70-130); Calcium 8.9 mg/dL (7.8-10.44); Carbon Dioxide 23 mmol/L (22-29); Chloride 104 mmol/L (98-107); Estimated GFR-MDRD 77; Globulin 2.5 g/dL (2.4-3.5); Glucose 126 mg/dL (70-105); Potassium 3.1 mmol/L (3.5-5.1); Protein, Total 6.1 g/dL (6.0-8.3); Sodium 137 mmol/L (136-145)
[2020-01-23] MEDS ORDERED: Cyclobenzaprine 10 MG TAB ONE (21:34)
[2020-01-23] MEDS ORDERED: Acetaminophen/Codeine 30-300mg Tablet ONE (21:34)
== END 2020-01-23 21:44 | disposition home or self-care (01) ==
LOC: ERS 18:36
DX: R51.9 Headache, unspecified (principal); I10 Essential (primary) hypertension; F41.9 Anxiety disorder, unspecified; F32.9 Major depressive disorder, single episode, unspecified; F17.210 Nicotine dependence, cigarettes, uncomplicated; G62.9 Polyneuropathy, unspecified; Z79.899 Other long term (current) drug therapy
CPT/HCPCS: 36415; 80053; 85025; 96365; 96367; 96375; J1885; J2765; J3490

== ENCOUNTER 2020-01-25 10:25 | Emergency (ER) | payer BC, SELFPAY ==
[2020-01-25] MEDS ORDERED: diphenhydrAMINE 25 MG CAP ONE (11:36)
[2020-01-25] MEDS ORDERED: Ketorolac Tromethamine 30 MG/ML VIAL ONE (11:36)
[2020-01-25] MEDS ORDERED: Prochlorperazine Maleate 5 MG TAB ONE (11:36)
[2020-01-25] MEDS ORDERED: Acetaminophen 325 MG TAB ONE (11:36)
[2020-01-25] MEDS ORDERED: Labetalol HCl 100 MG/20 ML VIAL ONE (12:04)
--- NOTE | 2020-01-25 12:19 | RAD ---
PORTABLE CHEST 1 VIEW: Date: 01/25/2020 Time: 1212 hours HISTORY: Hypertension. COMPARISON: 05/01/2017. FINDINGS: The heart size is normal. The lungs are well expanded without lobar consolidation, pneumothoraces, or pleural effusions. IMPRESSION: No radiographic evidence of acute cardiopulmonary process. POS: LESLIEA
[2020-01-25 12:32] LABS: #Basophils 0.1 thou/uL (0.0-0.2); #Eosinphils 0.1 thou/uL (0.0-0.7); #Lymphocytes 3.6 thou/uL (1.20-3.40); #Monocytes 0.5 thou/uL (0.11-0.59); %Basophils 0.8 % (0.0-1.0); %Lymphocytes 34.6 % (21.0-51.0); %Monocytes 5.2 % (0.0-10.0); %Neutrophils 58.5 % (42.0-75.0); Mean Corpuscular HGB CONC 35.9 g/dL (32.0-36.0); Mean Corpuscular Hemoglobin 34.8 pg (27.0-31.0); Mean Platelet Volume 7.1 fL (7.4-10.4); Platelet Count 294 thou/uL (130-400); RBC Distribution Width 11.2 % (11.5-14.5); Red Blood Cell (RBC) Count 4.31 mill/uL (4.20-5.40); White Blood Cell (WBC) Count 10.3 thou/uL (4.8-10.8)
[2020-01-25 12:59] LABS: ALT (SGPT) 11 U/L (8-55); AST (SGOT) 16 U/L (5-34); Alkaline Phosphatase 85 U/L (40-110); Anion Gap 12 mmol/L (10-20); BUN (Urea Nitrogen) 10 mg/dL (7.0-18.7); Bilirubin, Total 0.4 mg/dL (0.2-1.2); Calc. Creatinine Clearance 0 mL/min (70-130); Calcium 9.6 mg/dL (7.8-10.44); Carbon Dioxide 29 mmol/L (22-29); Chloride 100 mmol/L (98-107); Estimated GFR-MDRD 83; Globulin 2.8 g/dL (2.4-3.5); Glucose 97 mg/dL (70-105); Potassium 4.2 mmol/L (3.5-5.1); Protein, Total 6.8 g/dL (6.0-8.3); Sodium 137 mmol/L (136-145)
[2020-01-25] MEDS ORDERED: Dexamethasone 10 MG/ML VIAL ONE (13:38)
[2020-01-25] MEDS ORDERED: Magnesium 2 GM/50 ML BAG (IN WATER) ONE (13:38)
== END 2020-01-25 15:02 | disposition home or self-care (01) ==
LOC: ERS 10:25
DX: I10 Essential (primary) hypertension (principal); R51.9 Headache, unspecified; F32.9 Major depressive disorder, single episode, unspecified; F41.9 Anxiety disorder, unspecified; F17.210 Nicotine dependence, cigarettes, uncomplicated; Z79.899 Other long term (current) drug therapy
CPT/HCPCS: 71045; 80053; 83880; 84443; 84484; 85025; 93005; 96365; 96372; 96375; J1100; J1885; J3475; Q0163; Q0164

== ENCOUNTER 2020-01-30 10:30 | Outpatient (CLI) | payer BC ==
--- NOTE | 2020-01-30 11:27 | ULT ---
Exam: Bilateral renal ultrasound HISTORY: Hypertension COMPARISON: None FINDINGS: Right kidney: Normal cortical echotexture. No hydronephrosis. Right kidney measurements: 10.4 x 5.6 x 4.4 cm. Left kidney: Normal cortical echotexture. No hydronephrosis Left kidney measurements 10.5 x 4.5 x 4.8 cm. Urinary bladder: Normal mucosa. Bladder volume is 121 mL. IMPRESSION: No hydronephrosis.
== END 2020-01-30 10:31 | disposition home or self-care (01) ==
LOC: BICULT 10:30
PROVIDERS: ATTEND Physician Assistant
DX: I16.1 Hypertensive emergency (principal)
CPT/HCPCS: 36415; 76770; 80053; 80306; 81001; 84439; 84443; 84481; 85025

== ENCOUNTER 2020-02-28 12:41 | Outpatient (CLI) | payer BC ==
--- NOTE | 2020-02-28 18:52 | ULT ---
RENAL ULTRASOUND: 02/28/20 HISTORY: Hypertension. Real time imaging of the right and left kidneys were performed. The right kidney measures 10 and the left kidney also 10 cm in size. No cyst, mass, or obstruction. The resistive index on the right was 0 .53 and on the left 0.57. The velocities obtained were only of the interlobar arteries and were in th e 30-40 cm/s range. The bladder region is unremarkable. IMPRESSION: Unremarkable renal ultrasound. POS: GIOVANNY
== END 2020-02-28 12:42 | disposition home or self-care (01) ==
LOC: BICULT 12:41
PROVIDERS: ATTEND Internal Medicine Nephrology
DX: I16.1 Hypertensive emergency (principal)
CPT/HCPCS: 36415; 76770; 80048; 82088; 83835; 84244

== ENCOUNTER 2022-05-04 15:26 | Emergency (ER) | payer BC ==
[~2022-05-04 15:26] MED LIST changes: +Iopamidol-370 76% 500 ML 1 ML ONE; -Magnevist 469MG/ML 20 ML VIAL ONE
[2022-05-04 16:33] LABS: #Basophils 0.1 thou/uL (0.0-0.2); #Eosinphils 0.2 thou/uL (0.0-0.7); #Lymphocytes 3.9 thou/uL (1.20-3.40); #Monocytes 0.6 thou/uL (0.11-0.59); #Neutrophils 3.6 thou/uL (1.40-6.50); %Basophils 0.8 % (0.0-1.0); %Eosinophils 2.6 % (0.0-10.0); %Lymphocytes 46.5 % (21.0-51.0); %Monocytes 6.6 % (0.0-10.0); %Neutrophils 43.5 % (42.0-75.0); Hemoglobin 12.6 g/dL (12.0-16.0); Mean Corpuscular HGB CONC 33.2 g/dL (32.0-36.0); Mean Corpuscular Hemoglobin 32.3 pg (27.0-31.0); Mean Corpuscular Volume 97.4 fl (78.0-98.0); Mean Platelet Volume 7.1 fL (7.4-10.4); Platelet Count 298 10x3/uL (130-400); RBC Distribution Width 11.9 % (11.5-14.5); Red Blood Cell (RBC) Count 3.91 mill/uL (4.20-5.40); White Blood Cell (WBC) Count 8.3 10x3/uL (4.8-10.8)
[2022-05-04 16:45] LABS: PTT 27.1 sec (22.9-36.1)
[2022-05-04 16:46] LABS: D-Dimer Test 0.57 *mcg/mL (0.27-0.43)
[2022-05-04 16:59] LABS: ALT (SGPT) 18 U/L (8-55); AST (SGOT) 18 U/L (5-34); Alkaline Phosphatase 104 U/L (40-110); Anion Gap 12 mmol/L (10-20); BUN (Urea Nitrogen) 18 mg/dL (9.8-20.1); Bilirubin, Total 0.3 mg/dL (0.2-1.2); Calc. Creatinine Clearance 0 mL/min (70-130); Calcium 9.8 mg/dL (7.8-10.44); Carbon Dioxide 29 mmol/L (22-29); Chloride 105 mmol/L (98-107); Estimated GFR 85; Globulin 2.5 g/dL (2.4-3.5); Glucose 97 mg/dL (70-105); Lipase 115 U/L (8-78); Potassium 3.8 mmol/L (3.5-5.1); Protein, Total 6.5 g/dL (6.0-8.3); Sodium 142 mmol/L (136-145)
== END 2022-05-04 20:11 | disposition home or self-care (01) ==
LOC: ERS 15:26
DX: J18.9 Pneumonia, unspecified organism (principal); M79.605 Pain in left leg; I10 Essential (primary) hypertension; Z87.891 Personal history of nicotine dependence
CPT/HCPCS: 36415; 71045; 71275; 80053; 83690; 83880; 84484; 85025; 85379; 85610; 85730; 93005; 93923; Q9967

== ENCOUNTER 2022-07-07 07:34 | Outpatient (CLI) | payer BC | END 2022-07-07 07:35 | disposition home or self-care (01) | LOC: TBSIIMAG 07:34 | PROVIDERS: ATTEND Family Medicine | DX: M54.16 Radiculopathy, lumbar region (principal); M47.816 Spondylosis without myelopathy or radiculopathy, lumbar region | CPT/HCPCS: 72148 ==

== ENCOUNTER 2023-09-15 12:42 | Inpatient (IN) | payer BC ==
[2023-09-15] MEDS ORDERED: Ondansetron PF 4 MG/2 ML Vial ONE (14:23)
[2023-09-15] MEDS ORDERED: Morphine 4 MG/ML VIAL ONE ×2 (14:23→15:18)
[2023-09-15 14:54] LABS: #Basophils 0.06 10x3/uL (0.0-0.2); %Basophils 0.4 % (0.0-1.0); %Eosinophils 0.4 % (0.0-10.0); %Monocytes 5.3 % (0.0-10.0); %Neutrophils 70.4 % (42.0-75.0); Hematocrit 39.7 % (36.0-47.0); Hemoglobin 13.5 g/dL (12.0-16.0); Mean Corpuscular Hemoglobin 31.8 pg (27.0-31.0); Mean Corpuscular Volume 93.6 fL (78.0-98.0); Mean Platelet Volume 10.7 fL (7.4-10.4); Platelet Count 272 10x3/uL (130-400); RBC Distribution Width 13.5 % (11.5-14.5); Red Blood Cell (RBC) Count 4.24 mill/uL (4.20-5.40)
[2023-09-15 15:07] LABS: PTT 26.2 sec (22.9-36.1); Prothrombin Time 13.1 sec (12.0-14.7)
[2023-09-15 15:15] LABS: ALT (SGPT) 20 U/L (8-55); AST (SGOT) 19 U/L (5-34); Albumin 3.6 g/dL (3.5-5.0); Alkaline Phosphatase 103 U/L (40-110); Anion Gap 15 mmol/L (10-20); BUN (Urea Nitrogen) 17 mg/dL (9.8-20.1); Bilirubin, Total 0.3 mg/dL (0.2-1.2); Calc. Creatinine Clearance 0 mL/min (70-130); Calcium 9.3 mg/dL (7.8-10.44); Carbon Dioxide 23 mmol/L (22-29); Chloride 107 mmol/L (98-107); Estimated GFR 96; Globulin 3.3 g/dL (2.4-3.5); Glucose 110 mg/dL (70-105); Potassium 3.8 mmol/L (3.5-5.1); Protein, Total 6.9 g/dL (6.0-8.3); Sodium 141 mmol/L (136-145)
[2023-09-15 15:22] LABS: Troponin I Less than 0.010 ng/mL (< 0.028)
[2023-09-15] MEDS ORDERED: hydrALAZINE 20 MG/ML VIAL SLOW IVP PRN (16:08)
[2023-09-15] MEDS ORDERED: Dextrose 50% Abboject 50 ML SYRINGE SLOW IVP PRN (16:08)
[2023-09-15] MEDS ORDERED: Dextrose 5% in Water 1,000 ML IV PRN (16:08)
[2023-09-15] MEDS ORDERED: Ondansetron PF 4 MG/2 ML Vial IVP PRN (16:08)
[2023-09-15] MEDS ORDERED: Ondansetron ODT 4 MG TAB PO PRN (16:08)
[2023-09-15] MEDS ORDERED: Glucagon 1 MG/ML KIT IM PRN (16:08)
[2023-09-15] MEDS ORDERED: HYDROcodone/Acetaminophen 5/325 mg Tablet ONE ×2 (16:49→21:10)
[2023-09-15] MEDS ORDERED: TETANUS, DIPHTHERIA TOX,ADULT (TDVAX) 0.5 ML VIAL IM ONE (16:52)
[2023-09-15] MEDS: TETANUS, DIPHTHERIA TOX,ADULT (TDVAX) 0.5 ML VIAL IM ONE (17:14)
[2023-09-15] MEDS: HYDROcodone/Acetaminophen 5/325 mg Tablet PO PRN (17:16)
[2023-09-15] MEDS: Morphine 2 MG/ML VIAL SLOW IVP PRN (23:15)
[2023-09-15 23:50] VITALS: BMI 44.4
[2023-09-16 05:04] LABS: #Basophils 0.04 10x3/uL (0.0-0.2); %Basophils 0.3 % (0.0-1.0); %Eosinophils 0.4 % (0.0-10.0); %Lymphocytes 25.7 % (21.0-51.0); %Monocytes 7.9 % (0.0-10.0); %Neutrophils 65.4 % (42.0-75.0); Hematocrit 35.5 % (36.0-47.0); Hemoglobin 11.5 g/dL (12.0-16.0); Mean Corpuscular HGB CONC 32.4 g/dL (32.0-36.0); Mean Corpuscular Hemoglobin 31.4 pg (27.0-31.0); Platelet Count 216 10x3/uL (130-400); RBC Distribution Width 13.5 % (11.5-14.5); Red Blood Cell (RBC) Count 3.66 mill/uL (4.20-5.40)
[2023-09-16 05:20] LABS: ALT (SGPT) 20 U/L (8-55); AST (SGOT) 22 U/L (5-34); Albumin 3.2 g/dL (3.5-5.0); Alkaline Phosphatase 97 U/L (40-110); Anion Gap 15 mmol/L (10-20); BUN (Urea Nitrogen) 14 mg/dL (9.8-20.1); Bilirubin, Total 0.3 mg/dL (0.2-1.2); Calc. Creatinine Clearance 163 mL/min (70-130); Calcium 8.5 mg/dL (7.8-10.44); Carbon Dioxide 20 mmol/L (22-29); Chloride 106 mmol/L (98-107); Estimated GFR 101; Glucose 129 mg/dL (70-105); Potassium 3.7 mmol/L (3.5-5.1); Protein, Total 6.2 g/dL (6.0-8.3); Sodium 137 mmol/L (136-145)
[2023-09-16] MEDS ORDERED: CEFAZOLIN 2 GM in Sodium Chloride 0.9% 100 ML IVPB SCH (06:30)
[2023-09-16] MEDS ORDERED: Sodium Chloride 0.9% (PF) 10 ML VIAL FS PRN (08:30)
[2023-09-16] MEDS: Pantoprazole 40 MG VIAL IVP SCH (08:35)
[2023-09-16] MEDS: Gabapentin 300 MG CAP PO SCH (14:53)
[2023-09-17] MEDS ORDERED: Bupivacaine 0.25% HCL 30 ML VIAL ONE (06:42)
[2023-09-17] MEDS ORDERED: fentaNYL 50 mcg/mL 1 mL Vial ONE (07:50)
[2023-09-17] MEDS: Ezetimibe 10 MG TAB PO SCH (09:39)
[2023-09-17] MEDS: Carvedilol 6.25 MG TAB PO SCH ×2 (09:39→17:42)
[2023-09-17] MEDS ORDERED: Iopamidol-370 76% 500 ML MDV (1 ML CHARGE) ONE (12:20)
[2023-09-18 05:31] LABS: #Basophils 0.05 10x3/uL (0.0-0.2); %Basophils 0.4 % (0.0-1.0); %Eosinophils 0.9 % (0.0-10.0); %Lymphocytes 26.6 % (21.0-51.0); %Monocytes 8.2 % (0.0-10.0); %Neutrophils 63.5 % (42.0-75.0); Hematocrit 32.3 % (36.0-47.0); Hemoglobin 10.8 g/dL (12.0-16.0); Mean Corpuscular HGB CONC 33.4 g/dL (32.0-36.0); Mean Corpuscular Hemoglobin 31.7 pg (27.0-31.0); Mean Corpuscular Volume 94.7 fL (78.0-98.0); Mean Platelet Volume 11.1 fL (7.4-10.4); Platelet Count 196 10x3/uL (130-400); RBC Distribution Width 13.2 % (11.5-14.5); Red Blood Cell (RBC) Count 3.41 mill/uL (4.20-5.40)
[2023-09-18 06:08] LABS: Anion Gap 13 mmol/L (10-20); BUN (Urea Nitrogen) 17 mg/dL (9.8-20.1); Calc. Creatinine Clearance 183 mL/min (70-130); Calcium 9.1 mg/dL (7.8-10.44); Carbon Dioxide 26 mmol/L (22-29); Cardiac Risk 2.9 (Less than 4.5); Chloride 104 mmol/L (98-107); Cholesterol 162 mg/dl (< 200 Desired); Estimated GFR 105; Glucose 130 mg/dL (70-105); HDL Cholesterol 56 mg/dL (>60 Neg Risk); LDL Cholesterol, Calculated 94 mg/dL; Potassium 3.7 mmol/L (3.5-5.1); Sodium 139 mmol/L (136-145); Triglycerides 58 mg/dL (Less than 150)
[2023-09-18 06:40] LABS: Hemoglobin A1c 5.4 % (4.0-6.0)
[2023-09-18] MEDS ORDERED: Carvedilol 6.25 MG TAB PO SCH (08:00)
[2023-09-18] MEDS ORDERED: PROPOFOL 20 ML ONE (09:47)
[2023-09-18] MEDS ORDERED: fentaNYL PF 100 MCG/2 ML SYRINGE ONE (09:47)
[2023-09-18] MEDS ORDERED: Rocuronium Bromide 10 MG/ML (10ML VIAL) ONE (09:51)
[2023-09-18] MEDS ORDERED: Lidocaine 2% PF 5 ML VIAL ONE (09:51)
[2023-09-18] MEDS ORDERED: Phenylephrine 10 MG/ML VIAL ONE (09:57)
[2023-09-18] MEDS ORDERED: Dexamethasone 20 MG/5 ML VIAL ONE (10:23)
[2023-09-18] MEDS ORDERED: Ondansetron PF 4 MG/2 ML Vial ONE (10:23)
[2023-09-18] MEDS ORDERED: Ketorolac Tromethamine 30 MG (1 mL) VIAL ONE (10:23)
[2023-09-18] MEDS ORDERED: CEFAZOLIN 1 GM VIAL ONE (10:34)
[2023-09-18] MEDS ORDERED: HYDROmorphone 2 MG/ML VIAL SLOW IVP PRN (10:53)
[2023-09-18] MEDS ORDERED: PACU-Morphine 4MG/ML VIAL SLOW IVP PRN (10:53)
[2023-09-18] MEDS ORDERED: Promethazine HCl 25 MG/ML VIAL IM PRN (10:53)
[2023-09-18] MEDS ORDERED: Ondansetron HCl/PF 4 MG/2 ML Vial IVP PRN (10:53)
[2023-09-18] MEDS ORDERED: Glycopyrrolate 0.2 MG/ML 5 ML SYRINGE ONE (12:24)
[2023-09-18] MEDS ORDERED: NEOSTIGMINE 3 MG/3 ML SYRINGE ONE (12:24)
[2023-09-18] MEDS ORDERED: hydrALAZINE 20 MG/ML VIAL ONE (13:09)
[2023-09-18] MEDS ORDERED: CEFAZOLIN 2 GM in Sodium Chloride 0.9% 100 ML IVPB SCH (14:00)
[2023-09-18] MEDS: CEFAZOLIN 2 GM in Sodium Chloride 0.9% 100 ML IVPB SCH (17:34)
[2023-09-19 04:31] LABS: Hematocrit 33.8 % (36.0-47.0); Hemoglobin 11.2 g/dL (12.0-16.0)
[2023-09-19] MEDS: Pantoprazole DR 40 MG TAB PO SCH (08:54)
[2023-09-19] MEDS: Carvedilol 6.25 MG TAB PO SCH (08:55)
[2023-09-19] MEDS: Acetaminophen 325 MG TAB PO PRN (20:06)
[2023-09-19] MEDS: Enoxaparin 40 MG (0.4 mL) SYRINGE SC SCH (20:07)
[2023-09-19] MEDS ORDERED: Heparin 5,000 UNITS/ML VIAL SC SCH (21:00)
[2023-09-20] MEDS: traMADol HCl 50 MG TAB PO PRN (02:18)
[2023-09-20] MEDS: Milk Of Magnesia 30 ML UDCUP PO PRN (08:57)
[2023-09-20] MEDS: Methocarbamol 500 MG TAB PO PRN (12:00)
[2023-09-20] MEDS: Pregabalin 75 MG CAP PO SCH (21:45)
[2023-09-21 04:41] LABS: #Basophils 0.03 10x3/uL (0.0-0.2); %Basophils 0.2 % (0.0-1.0); %Eosinophils 0.8 % (0.0-10.0); %Lymphocytes 25.8 % (21.0-51.0); %Monocytes 8.4 % (0.0-10.0); %Neutrophils 64.1 % (42.0-75.0); Hematocrit 32.4 % (36.0-47.0); Hemoglobin 10.8 g/dL (12.0-16.0); Mean Corpuscular HGB CONC 33.3 g/dL (32.0-36.0); Mean Corpuscular Hemoglobin 32.3 pg (27.0-31.0); Platelet Count 228 10x3/uL (130-400); RBC Distribution Width 13.2 % (11.5-14.5); Red Blood Cell (RBC) Count 3.34 mill/uL (4.20-5.40)
[2023-09-21 05:02] LABS: Anion Gap 15 mmol/L (10-20); BUN (Urea Nitrogen) 11 mg/dL (9.8-20.1); Calc. Creatinine Clearance 178 mL/min (70-130); Calcium 9.4 mg/dL (7.8-10.44); Carbon Dioxide 24 mmol/L (22-29); Chloride 100 mmol/L (98-107); Estimated GFR 105; Glucose 112 mg/dL (70-105); Sodium 135 mmol/L (136-145)
[2023-09-21] MEDS: Cholecalciferol 1,000 UNITS (25 MCG) TAB PO SCH (08:06)
[2023-09-21] MEDS: Calcium Carbonate 500 MG TAB PO SCH (18:07)
[2023-09-21] MEDS: Enoxaparin 30 MG (0.3 mL) SYRINGE SC SCH (19:46)
[2023-09-21] MEDS: Senokot S 8.6-50 MG TAB PO SCH (19:48)
[2023-09-21] MEDS: Lactulose 20 GM (30 mL) UDCUP PO SCH (19:48)
[2023-09-22] MEDS: Polyethylene Glycol 3350 17 GM Packet PO SCH (08:46)
[2023-09-22 14:32] VITALS: BMI 44.4
[2023-09-24] MEDS ORDERED: Cyclobenzaprine 10 MG TAB PO PRN (07:36)
[2023-09-24] MEDS: Acetaminophen 325 MG TAB PO SCH (08:36)
[2023-09-24] MEDS: Clopidogrel Bisulfate 75 MG TAB PO SCH (08:38)
[2023-09-24] MEDS: Ketorolac Tromethamine 30 MG (1 mL) VIAL IVP SCH (13:05)
[2023-09-24 15:21] VITALS: BP 115/71; TEMP 98.3
== END 2023-09-24 16:36 | DRG 493 ==
LOC: ERS 12:42 → ERHOLD 16:04 → 2NO 22:19 → SURG B 09-21 17:45
PROVIDERS: ADMIT Surgery; ATTEND Family Medicine
PROC: 0QSH04Z Reposition Left Tibia with Internal Fixation Device, Open Approach (ICD-10-PCS; principal; 2023-09-18)
PROC: 0QSG04Z Reposition Right Tibia with Internal Fixation Device, Open Approach (ICD-10-PCS; 2023-09-18)
DX: S82.852A Displaced trimalleolar fracture of left lower leg, initial encounter for closed fracture (principal); Z68.41 Body mass index [BMI] 40.0-44.9, adult; S82.841A Displaced bimalleolar fracture of right lower leg, initial encounter for closed fracture; W18.30XA Fall on same level, unspecified, initial encounter; R55 Syncope and collapse; I10 Essential (primary) hypertension; E78.5 Hyperlipidemia, unspecified; F32.A Depression, unspecified; I73.9 Peripheral vascular disease, unspecified; G89.4 Chronic pain syndrome; I65.23 Occlusion and stenosis of bilateral carotid arteries; E66.9 Obesity, unspecified; R53.81 Other malaise; D64.9 Anemia, unspecified; Z88.8 Allergy status to other drugs, medicaments and biological substances; Z79.899 Other long term (current) drug therapy; Z90.49 Acquired absence of other specified parts of digestive tract; Z90.710 Acquired absence of both cervix and uterus; Z90.89 Acquired absence of other organs; Z98.890 Other specified postprocedural states; Z87.891 Personal history of nicotine dependence
CPT/HCPCS: 29515; 36415; 70450; 70496; 70498; 70551; 71045; 80048; 80053; 80061; 82306; 83036; 83735; 83880; 84484; 85014; 85018; 85025; 85610; 85730; 90714; 93005; 93306; 93880; 94760; 96374; 96375; 96376; C1713; C9113; G0390; J0360; J0665; J0690; J1100; J1650; J1885; J2001; J2270; J2272; J2371; J2405; J2704; J3010; J3490; Q9967

== ENCOUNTER 2023-12-20 09:37 | Outpatient (CLI) | payer BC ==
[2023-12-20] MEDS ORDERED: Iopamidol 370 76% 100 ML VIAL ONE (15:11)
== END 2023-12-20 09:38 | disposition home or self-care (01) ==
LOC: CT 09:37
PROVIDERS: ATTEND Internal Medicine
DX: R91.1 Solitary pulmonary nodule (principal); K76.0 Fatty (change of) liver, not elsewhere classified; J90 Pleural effusion, not elsewhere classified
CPT/HCPCS: 71260

== ENCOUNTER 2024-01-21 06:16 | Day surgery (SDC) | payer BC ==
[2024-01-20 12:36] VITALS: BMI 44.2
[2024-01-21] MEDS ORDERED: Dexamethasone 20 MG/5 ML VIAL ONE (06:51)
[2024-01-21] MEDS ORDERED: Ondansetron PF 4 MG/2 ML Vial ONE (06:51)
[2024-01-21] MEDS ORDERED: PROPOFOL 20 ML ONE (06:51)
[2024-01-21] MEDS ORDERED: Lidocaine 1% PF 5 ML VIAL ONE (06:51)
[2024-01-21] MEDS ORDERED: fentaNYL PF 100 MCG/2 ML SYRINGE ONE (06:51)
[2024-01-21] MEDS ORDERED: Midazolam HCl 2 mg/2 ml Vial ONE (06:51)
[2024-01-21] MEDS ORDERED: CEFAZOLIN 2 GM VIAL ONE (07:36)
[2024-01-21] MEDS ORDERED: Bupivacaine PF 0.5% 30 ML VIAL ONE (07:36)
[2024-01-21] MEDS ORDERED: PHENYLEPHRINE-NS 100 MCG/ML 10 ML SYRINGE ONE (08:01)
[2024-01-21] MEDS ORDERED: SUGAMMADEX SODIUM 200 MG/2 ML VIAL ONE ×2 (08:22→08:44)
[2024-01-21] MEDS ORDERED: HYDROcodone/Acetaminophen 5/325 mg Tablet ONE (10:06)
== END 2024-01-21 10:35 | disposition home or self-care (01) ==
LOC: SDC 06:16
PROVIDERS: ATTEND Orthopaedic Surgery
PROC: 0SPG0JZ Removal of Synthetic Substitute from Left Ankle Joint, Open Approach (ICD-10-PCS; principal; 2024-01-21)
PROC: 0SPF0JZ Removal of Synthetic Substitute from Right Ankle Joint, Open Approach (ICD-10-PCS; 2024-01-21)
DX: T85.848A Pain due to other internal prosthetic devices, implants and grafts, initial encounter (principal); S82.892D Other fracture of left lower leg, subsequent encounter for closed fracture with routine healing; S82.891A Other fracture of right lower leg, initial encounter for closed fracture; I10 Essential (primary) hypertension; Z98.890 Other specified postprocedural states; Z90.49 Acquired absence of other specified parts of digestive tract; Z90.710 Acquired absence of both cervix and uterus; Z87.891 Personal history of nicotine dependence; Z79.899 Other long term (current) drug therapy; Z88.8 Allergy status to other drugs, medicaments and biological substances; Y83.1 Surgical operation with implant of artificial internal device as the cause of abnormal reaction of the patient, or of later complication, without mention of misadventure at the time of the procedure; X58.XXXD Exposure to other specified factors, subsequent encounter
CPT/HCPCS: J0665; J1100; J2250; J2405; J2704

== ENCOUNTER 2024-10-31 10:27 | Outpatient (CLI) | payer BC | END 2024-10-31 10:28 | disposition home or self-care (01) | LOC: SCSMRI 10:27 | PROVIDERS: ATTEND Orthopaedic Surgery | DX: S82.892D Other fracture of left lower leg, subsequent encounter for closed fracture with routine healing (principal); S82.202K Unspecified fracture of shaft of left tibia, subsequent encounter for closed fracture with nonunion; S82.52XD Displaced fracture of medial malleolus of left tibia, subsequent encounter for closed fracture with routine healing ==